=== PATIENT | female | born 1990 | race Caucasian/White ===

== ENCOUNTER 2019-05-11 14:44 | Emergency (ER) | payer OTHER, SELFPAY ==
[2019-05-11 15:04] VITALS: BP 134/81; PULSE 127; RESP 20; TEMP 37.6; O2SAT 97
--- NOTE | 2019-05-11 15:04 | ED.GENADULT ---
HPI - General Adult General Chief complaint: Upper Respiratory Infection Stated complaint: Cold/Flu Time Seen by Provider: 05/11/19 15:24 Source: patient Mode of arrival: ambulatory Limitations: no limitations History of Present Illness HPI narrative: 28-year-old female patient presents to the [facility] with complaints of cold symptoms for the past 2 days. Patient states she has had fevers, body aches, chills, runny nose, stuffy nose and a cough. Denies any chest pain or shortness of breath. Patient states she has been taking DayQuil and NyQuil for her symptoms. Patient denies getting a flu shot this year. Patient denies any breast-feeding or at this time. Related Data Home Medications Medication Instructions Recorded Confirmed sertraline 100 mg PO DAILY 05/11/19 05/11/19 Allergies Allergy/AdvReac Type Severity Reaction Status Date / Time ethinyl estradiol Allergy Unknown HIVES Verified 05/11/19 15:14 levonorgestrel-ethinyl Allergy Unknown HIVES Verified 05/11/19 15:14 estradiol WHEAT FLOUR Allergy Unknown Hives Uncoded 05/11/19 15:14 Review of Systems Review of Systems: Narrative: CONSTITUTIONAL: Positive subjective fever, body aches, chills, and sweats. EYES: Denies visual changes, redness, or discharge. ENT: Positive rhinorrhea, congestion, denies sore throat, or otalgia. CARDIOVASCULAR: Denies chest pain, palpitations, or edema. RESPIRATORY: Positive cough, denies dyspnea. GASTROINTESTINAL: Denies abdominal pain, nausea, vomiting, or diarrhea. GENITOURINARY: Denies dysuria or hematuria. SKIN: Denies rash or itching. MUSCULOSKELETAL: Denies back pain, joint pain, or myalgia. NEUROLOGIC: Denies headache, numbness, or weakness. PSYCHIATRIC: Denies anxiety or depression. PMFSH Comments At the time of my signature I agree with nursing past medical history, surgical, social, and family history. There is no relevant family history pertinent to the presenting complaint. Exam Narrative: Exam Narrative: GENERAL: Well-appearing, well-nourished, and in no acute distress. HEAD: Normocephalic, atraumatic. No tenderness noted to frontal maxillary sinuses on palpation. EYES: PERRLA and EOMI. ENT: Nares with erythema and edema noted bilaterally, no rhinorrhea or epistaxis. Mucous membranes moist. Posterior pharynx with no erythema, tonsillar margin, exudates or lesions present. Bilateral TMs are clear no erythema or foreign bodies in the canal. NECK: Supple. No lymphadenopathy CHEST: Clear to auscultation. No respiratory distress. HEART: Regular rate and rhythm. No murmur heard. Normal peripheral pulses. ABDOMEN: Soft, nontender, nondistended, normal active bowel sounds. EXTREMITIES: Normal range of motion. No edema. SKIN: Warm, dry, no rash. NEURO: No focal deficits. Alert and oriented x3. Course Vital Signs Vital signs: Vital Signs Temperature 37.6 C 05/11/19 15:04 Pulse Rate 127 H 05/11/19 15:04 Respiratory Rate 20 05/11/19 15:04 Blood Pressure 134/81 05/11/19 15:04 Pulse Oximetry 97 05/11/19 15:04 Temperature 37.6 C 05/11/19 15:04 Pulse Rate 127 H 05/11/19 15:04 Respiratory Rate 20 05/11/19 15:04 Blood Pressure 134/81 05/11/19 15:04 Pulse Oximetry 97 05/11/19 15:04 Vital signs reviewed. Medical Decision Making Differential Diagnosis Differential Diagnosis: Differential diagnosis: Allergic rhinitis, chronic sinusitis, tonsillitis, acute sinusitis, infectious mononucleosis, seasonal influenza, pertussis, diphtheria, meningococcal disease, viral syndrome, viral bronchitis, RSV. Notify patient that she is negative today for influenza. Discussed patient she can treat her symptoms symptomatically with [id number] Tylenol, Motrin, and can may continue doing her DayQuil and NyQuil as needed. Discussed with patient I will go ahead and give her some Tessalon Perlani to see if this helps with the cough however this is viral and will have to take its course and can last
== END 2019-05-11 15:40 | disposition home or self-care (01) ==
PROVIDERS: Emergency Provider Nurse Practitioner Family
DX: J06.9 Acute upper respiratory infection, unspecified (principal); F41.9 Anxiety disorder, unspecified
CPT/HCPCS: 87804; 99213; G0463

== ENCOUNTER 2019-09-29 15:36 | Emergency (ER) | payer OTHER, SELFPAY ==
[2019-09-29 15:40] VITALS: BP 134/107; PULSE 135; RESP 18; TEMP 36.9; O2SAT 96
--- NOTE | 2019-09-29 16:19 | ED.NAVMDI ---
HPI - Nausea/Vomiting/Diarrhea General Chief complaint: Abdominal Pain Stated complaint: Vomiting Source: patient and family () Mode of arrival: ambulatory Limitations: no limitations History of Present Illness HPI Narrative: 29 y.o. with a hx of+ recurrent episodes of vomiting and epigastric pain, onset about 2.5 years ago. She most recently abruptly started having nausea and vomiting 5 days ago, just after an argument with a friend. Since then she has vomited over 20x/day and had persistent upper abdominal pain. She has a hard time descriminating between and quantifying the nausea and pain. She has had several loose stools over the last five days. She at noodles last night and drank about 10 bottles of water. She has no headache or hx of migraines. Associated symptoms of a tender rash which forms on her neck and midsternal area every time she develops these symptoms. She has at least a 7 year hx of daily pot smoking. She had been smoking throughout the day until 3 months ago. She now smokes several times in the evening only. She has gone to [place] for E.D. care multiple times in the past for these episodes. There she has been advised to taper off of pot, received Zofran and IV fluids. These help but don't stop the pain. Related Data Home Medications Medication Instructions Recorded Confirmed sertraline 100 mg PO DAILY 05/11/19 09/29/19 Allergies Allergy/AdvReac Type Severity Reaction Status Date / Time ethinyl estradiol Allergy Unknown HIVES Verified 09/29/19 17:59 levonorgestrel-ethinyl Allergy Unknown HIVES Verified 09/29/19 17:59 estradiol WHEAT FLOUR Allergy Unknown Hives Uncoded 09/29/19 17:59 Review of Systems Constitutional: Constitutional: Reports fatigue and Denies fever(s) Comments: Very tired, has not slept for 2 days. ENT: Denies sore throat Cardiovascular: Cardiovascular: Denies chest pain Respiratory: Respiratory: Denies dyspnea Gastrointestinal: Gastrointestinal: Reports no additional gastrointestinal complaints Genitourinary: Genitourinary: Denies dysuria Comments: LMP 09/18/2019. Monthly menses Musculoskeletal: Musculoskeletal: Denies joint swelling Integumentary/Breasts: Skin/Breast: Reports rash Comments: See HPI Psychiatric: Psychiatric: Reports depression [facility] Past Medical History Medical History (Updated 09/29/19 @ 19:33 by Babar Prater MD) delivery delivered Marijuana abuse, continuous Recurrent abdominal pain Recurrent vomiting Surgical History Surgical History (Updated 09/29/19 @ 19:11 by Babar Prater MD) History of appendectomy History of cholecystectomy Exam Narrative: Exam Narrative: Appears to be uncomfortable/in pain Const: General: ill appearing Orientation/consciousness: patient oriented x3 HENMT: Mouth: Yes Normal oral and palatal mucosa present Eyes: EOM: EOMs intact bilaterally Neck: Neck: no lymphadenopathy Chest: Chest palpation & inspection: normal inspection of the chest Resp: Auscultation: clear to auscultation bilaterally Cardio: Rate: regular rate Rhythm: regular rhythm GI: GI Palp: Yes Soft to palpation, Yes Tenderness to palpation present (GI) (epigastrium ), No Rigid due to palpation and No Rebound tenderness present : General: Yes no CVA tenderness Skin: Other: pink maculo-papule rash primarily in vertical 2 cm lines on anterior neck, and diffusely scattered on sternal region. No petechia. Neuro: General: patient oriented x3 Extrem: General: normal to inspection and no edema Psych: Mental Status: mental status grossly normal Affect: normal affect Attitude: cooperative Course Course Emergency Course: Marked decrease in nausea and pain after Zofran, lorazepam 1 mg, promethazine 25 mg and morphine 4 mg. Offered admission for IVF, rest, dark room,quiet. Pt. wants to go home. Pt. d.c with plan to f/u with PCP in 2 days. Vital Signs Vital signs: Vital Signs Temperature 36.9 C
[2019-09-29 16:37] LABS: Basophils Absolute Auto 0.04 K/mm3 (0.00-0.10); Basophils Percent Auto 0.2 % (0.0-1.0); Eosinophils Absolute Auto 0.03 K/mm3 (0.02-0.50); Eosinophils Percent Auto 0.2 % (1.0-6.0); Hematocrit 39.4 % (35.0-49.0); Hemoglobin 12.8 g/dL (12.0-15.0); Immature Granulocyte Absolute 0.13 K/mm3 (0.00-0.00); Immature Granulocyte Percent A 0.8 % (0.0-0.0); Lymphocytes Absolute Auto 2.15 K/mm3 (1.10-4.50); Lymphocytes Percent Auto 13.3 % (18.0-42.0); Mean Corpuscular HGB Conc 32.5 g/dL (32.0-36.0); Mean Corpuscular Hemoglobin 26.2 pg (27.0-31.0); Mean Corpuscular Volume 80.7 fL (78.0-102.0); Mean Platelet Volume 9.7 fl (9.2-11.8); Monocytes Absolute Auto 0.76 K/mm3 (0.10-0.90); Monocytes Percent Auto 4.7 % (2.0-11.0); Neutrophils Percent Auto 80.8 % (50.0-70.0); Platelet Count Result 361 K/mm3 (150-420); Red Blood Count 4.88 M/mm3 (4.20-5.40); White Blood Count 16.1 K/mm3 (4.8-10.8)
[2019-09-29 16:39] LABS: Add Urine Microscopic? YES; Appearance Urine Clear (Clear); Bilirubin Urine Negative (Negative); Blood Urine Negative (Negative); Color Urine Yellow (Yellow); Glucose Urine UA Negative (Negative); Ketones Urine Negative (Negative); Leukocyte Esterase Ur Negative (Negative); Nitrate Urine Negative (Negative); Protein Urine 2+ (Negative); Urobilinogen Urine 0.2 mg/dL (0.2-1.0); pH Urine 6.5 (5.0-8.0)
[2019-09-29 16:42] LABS: Pregnancy On Board Control Positive; Urine Pregnancy Test Negative
[2019-09-29 16:43] LABS: Bacteria Urine 3+ /hpf; RBC Urine None seen /hpf (0-2); Squamous Epithelial Cell Urine Moderate /hpf (Few); WBC Urine None seen /hpf (0-3)
[2019-09-29 16:51] LABS: Alanine Aminotransferase 65 U/L (14-59); Albumin Level 4.5 g/dL (3.4-5.0); Alkaline Phosphatase 68 U/L (46-116); Anion Gap 11.6 mmol/L (7-16); Aspartate Amino Transferase 24 U/L (15-37); Bilirubin,Total 0.5 mg/dL (0.00-1.00); Blood Urea Nitrogen 29 mg/dL (7-18); Calcium 9.2 mg/dL (8.5-10.1); Carbon Dioxide 31 mmol/L (21-32); Chloride 96 mmol/L (98-108); Estimated Glomerular Filt Rate > 60; Glucose 151 mg/dL (70-99); Lipase 69 U/L (73-393); Osmolality Calculated 288 mOsm/kg (285-295); Potassium 3.6 mmol/L (3.5-5.1); Sodium 135 mmol/L (136-145); Total Protein 8.6 g/dL (6.4-8.2)
[2019-09-29] MEDS: KETOROLAC 30 MG/ML VIAL (*BKC) IV PUSH (17:02)
[2019-09-29] MEDS: ONDANSETRON INJ 4 MG/2 ML VIAL IV PUSH (17:02)
[2019-09-29] MEDS: LACTATED RINGERS 1,000 ML 999 ML IV CONT (17:03)
[2019-09-29] MEDS: PANTOPRAZOLE SODIUM IV 40 MG VIAL IV PUSH (17:03)
[2019-09-29] MEDS: MORPHINE SULFATE 4 MG/ML INJ IM (18:25)
[2019-09-29] MEDS: DEXTROSE 5%/0.9% SOD CHL 1,000 ML 999 ML IV CONT (18:25)
[2019-09-29] MEDS: PROMETHAZINE HCL 25 MG/ML AMPUL IM (18:54)
--- NOTE | 2019-09-29 19:25 | PC.NURSE ---
At 1830 Pt. verbalized to RN that she had previously been to the ED at [facility] and they were unable to figure out what was wrong with her. MD Prater printed her and her a large education packet on different causes of N/V/D of unknown source such as Hyperemesis r/t Marijuana Use or different food allergies like MSG allergy. and are reading education currently.
--- NOTE | 2019-09-29 19:39 | ED.ABDPAIN ---
HPI - Abdominal Pain General Chief Complaint: Abdominal Pain Stated Complaint: Vomiting Source: patient and family () Mode of arrival: ambulatory Limitations: no limitations History of Present Illness HPI narrative: . Related Data Home Medications Medication Instructions Recorded Confirmed sertraline 100 mg PO DAILY 05/11/19 09/29/19 Allergies Allergy/AdvReac Type Severity Reaction Status Date / Time ethinyl estradiol Allergy Unknown HIVES Verified 09/29/19 17:59 levonorgestrel-ethinyl Allergy Unknown HIVES Verified 09/29/19 17:59 estradiol WHEAT FLOUR Allergy Unknown Hives Uncoded 09/29/19 17:59 [facility] Past Medical History Medical History (Updated 09/29/19 @ 19:33 by Babar Prater MD) delivery delivered Marijuana abuse, continuous Recurrent abdominal pain Recurrent vomiting Surgical History Surgical History (Updated 09/29/19 @ 19:11 by Babar Prater MD) History of appendectomy History of cholecystectomy Course Vital Signs Vital signs: Vital Signs Temperature 36.9 C 09/29/19 15:40 Pulse Rate 135 H 09/29/19 15:40 Respiratory Rate 18 09/29/19 15:40 Blood Pressure 134/107 H 09/29/19 15:40 Pulse Oximetry 96 09/29/19 15:40 Temperature 36.9 C 09/29/19 15:40 Pulse Rate 135 H 09/29/19 15:40 Respiratory Rate 18 09/29/19 15:40 Blood Pressure 134/107 H 09/29/19 15:40 Pulse Oximetry 96 09/29/19 15:40 MDM - Abdominal Pain Lab Data Result diagrams: 09/29/19 16:30 09/29/19 16:30 Labs: Lab Results 09/29/19 09/29/19 09/29/19 Range/Units 16:14 16:14 16:30 WBC 16.1 H (4.8-10.8) K/mm3 RBC 4.88 (4.20-5.40) M/mm3 Hgb 12.8 (12.0-15.0) g/dL Hct 39.4 (35.0-49.0) % MCV 80.7 (78.0-102.0) fL MCH 26.2 L (27.0-31.0) pg MCHC 32.5 (32.0-36.0) g/dL RDW 13.0 (11.6-14.4) % Plt Count 361 (150-420) K/mm3 MPV 9.7 (9.2-11.8) fl Immature Gran % (Auto) 0.8 H (0.0-0.0) % Neut % (Auto) 80.8 H (50.0-70.0) % Lymph % (Auto) 13.3 L (18.0-42.0) % [place] % (Auto) 4.7 (2.0-11.0) % Eos % (Auto) 0.2 L (1.0-6.0) % Baso % (Auto) 0.2 (0.0-1.0) % Lymph # (Auto) 2.15 (1.10-4.50) K/mm3 [place] # (Auto) 0.76 (0.10-0.90) K/mm3 Eos # (Auto) 0.03 (0.02-0.50) K/mm3 Baso # (Auto) 0.04 (0.00-0.10) K/mm3 Abs Immat Gran (auto) 0.13 H (0.00-0.00) K/mm3 Absolute Neuts (auto) 13.0 H (1.7-7.2) K/mm3 Absolute Nucleated RBC 0.00 (0.00-0.00) K/mm3 Nucleated RBC % 0.0 (0-0.0) % Sodium (136-145) mmol/L Potassium (3.5-5.1) mmol/L Chloride (98-108) mmol/L Carbon Dioxide (21-32) mmol/L Anion Gap (7-16) mmol/L BUN (7-18) mg/dL Creatinine (0.55-1.02) mg/dL Estim Creat Clear Calc Estimated GFR (59 - ) Glucose (70-99) mg/dL Calculated Osmolality (285-295) mOsm/kg Calcium (8.5-10.1) mg/dL Total Bilirubin (0.00-1.00) mg/dL AST (15-37) U/L ALT (14-59) U/L Alkaline Phosphatase (46-116) U/L Total Protein (6.4-8.2) g/dL Albumin (3.4-5.0) g/dL Lipase (73-393) U/L Urine Color Yellow (Yellow) Urine Appearance Clear (Clear) Urine pH 6.5 (5.0-8.0) Ur Specific [place] 1.020 1.020 (1.010-1.020) Urine Protein 2+ H (Negative) Urine Glucose (UA) Negative (Negative) Urine Ketones Negative (Negative) Ur Blood (Man) Negative (Negative) Urine Nitrate Negative (Negative) Urine Bilirubin Negative (Negative) Urine Urobilinogen 0.2 (0.2-1.0) mg/dL Ur Leukocyte Esterase Negative (Negative) Urine RBC None seen (0-2) /hpf Urine WBC None seen (0-3) /hpf Ur Squamous Epith Cells Moderate H (Few) /hpf Urine Bacteria 3+ H (None) /hpf Urine Test Negative 09/29/19 Range/Units 16:30 WBC (4.8-10.8) K/mm3 RBC (4.20-5.40) M/mm3 Hgb (12.0-15.0) g/dL Hct (35.0-49.0) % MCV
[2019-09-29 19:49] VITALS: BP 111/39; RESP 161; O2SAT 96
== END 2019-09-29 19:50 | disposition home or self-care (01) ==
PROVIDERS: Emergency Provider Family Medicine
DX: R11.10 Vomiting, unspecified (principal); R10.9 Unspecified abdominal pain; F12.10 Cannabis abuse, uncomplicated
CPT/HCPCS: 36415; 80053; 81001; 81025; 83690; 85025; 96361; 96372; 96374; 96375; 99283; 99284; C9113; J1885; J2060; J2270; J2405; J2550; J7042; J7120

== ENCOUNTER 2020-06-13 13:13 | Emergency (ER) | payer OTHER, SELFPAY ==
[2020-06-13 13:29] VITALS: BP 144/95; PULSE 122; RESP 20; TEMP 37.4; O2SAT 97
[2020-06-13 14:21] LABS: Basophils Absolute Auto 0.02 K/mm3 (0.00-0.10); Basophils Percent Auto 0.2 % (0.0-1.0); Hematocrit 37.4 % (35.0-49.0); Hemoglobin 12.5 g/dL (12.0-15.0); Immature Granulocyte Absolute 0.08 K/mm3 (0.00-0.00); Immature Granulocyte Percent A 0.6 % (0.0-0.0); Lymphocytes Absolute Auto 1.91 K/mm3 (1.10-4.50); Lymphocytes Percent Auto 15.3 % (18.0-42.0); Mean Corpuscular HGB Conc 33.4 g/dL (32.0-36.0); Mean Corpuscular Hemoglobin 26.2 pg (27.0-31.0); Mean Corpuscular Volume 78.2 fL (78.0-102.0); Mean Platelet Volume 9.7 fl (9.2-11.8); Monocytes Absolute Auto 0.79 K/mm3 (0.10-0.90); Monocytes Percent Auto 6.3 % (2.0-11.0); Neutrophils Absolute Auto 9.7 K/mm3 (1.7-7.2); Neutrophils Percent Auto 77.6 % (50.0-70.0); Platelet Count Result 369 K/mm3 (150-420); Red Blood Count 4.78 M/mm3 (4.20-5.40); Red Cell Distribution Width 13.8 % (11.6-14.4); White Blood Count 12.5 K/mm3 (4.8-10.8)
[2020-06-13 14:22] LABS: Add Urine Microscopic? YES; Appearance Urine Clear (Clear); Bilirubin Urine Negative (Negative); Blood Urine Negative (Negative); Color Urine Yellow (Yellow); Glucose Urine UA Negative (Negative); Ketones Urine 1+ (Negative); Leukocyte Esterase Ur Negative LEU/UL (Negative); Nitrate Urine Negative (Negative); Protein Urine 2+ (Negative); Specific Grav Ur >= 1.030 (1.010-1.020); Urobilinogen Urine 0.2 mg/dL (0.2-1.0)
[2020-06-13] MEDS: ONDANSETRON INJ 4 MG/2 ML VIAL IV PUSH (14:25)
[2020-06-13 14:27] LABS: Pregnancy On Board Control Positive; Urine Pregnancy Test Negative
[2020-06-13 14:27] LABS: Bacteria Urine 1+ /hpf; Mucus Urine Few /lpf; RBC Urine None seen /hpf (0-2); Squamous Epithelial Cell Urine Few /hpf (Few); WBC Urine None seen /hpf (0-3)
[2020-06-13 14:36] LABS: Alanine Aminotransferase 24 U/L (14-59); Albumin Level 4.5 g/dL (3.4-5.0); Alkaline Phosphatase 68 U/L (46-116); Anion Gap 12 mmol/L (8-16); Aspartate Amino Transferase 11 U/L (15-37); Bilirubin,Total 0.5 mg/dL (0.00-1.00); Blood Urea Nitrogen 27 mg/dL (7-18); Carbon Dioxide 27 mmol/L (21-32); Chloride 102 mmol/L (98-108); Estimated CRCL calculation 91 ml/min; Estimated Glomerular Filt Rate > 60; Glucose 129 mg/dL (70-99); Lipase 38 U/L (73-393); Osmolality Calculated 299 mOsm/kg (285-295); Potassium 3.6 mmol/L (3.5-5.1); Sodium 141 mmol/L (136-145); Total Protein 8.7 g/dL (6.4-8.2)
[2020-06-13] MEDS: SODIUM CHLORIDE 0.9% IV 2,000 ML 999 ML IV CONT (14:39)
--- NOTE | 2020-06-13 15:50 | ED.NAVMDI ---
HPI - Nausea/Vomiting/Diarrhea General Chief complaint: Nausea/Vomiting/Diarrhea Stated complaint: acute hyper emisis Source: patient Mode of arrival: ambulatory Limitations: no limitations History of Present Illness HPI Narrative: Pt is a MJ user and had episodes of hyperemesis on multiple occasions. She started this episode 1 day ago. She is feeling nauseated, and cant keep anything down. MD elicited complaint: nausea Pertinent past history: cyclical vomiting Onset (ago): day(s) Description of vomiting: other (over 10 times in last 24 hours) Associated nausea: No Location of pain: none Pain consistency: constant Severity: mild Quality: cramping Exacerbating factors: eating Relieving factors: none Associated symptoms: loss of appetite and nausea/vomiting Related Data Allergies Allergy/AdvReac Type Severity Reaction Status Date / Time ethinyl estradiol Allergy Unknown HIVES Verified 06/13/20 13:46 levonorgestrel-ethinyl Allergy Unknown HIVES Verified 06/13/20 13:46 estradiol WHEAT FLOUR Allergy Unknown Hives Uncoded 06/13/20 13:46 Review of Systems Constitutional: Constitutional: Denies chills, Reports fatigue, Denies fever(s) and Reports weakness Eyes: Eyes: Reports no additional eye complaints ENT: Reports system reviewed and no additional complaints, except as documented Cardiovascular: Cardiovascular: Reports no additional cardiovascular complaints Respiratory: Respiratory: Reports no additional respiratory complaints Gastrointestinal: Gastrointestinal: Reports no additional gastrointestinal complaints Musculoskeletal: Musculoskeletal: Reports no additional musculoskeletal complaints Neurologic: Reports system reviewed and no additional complaints, except as documented Psychiatric: Psychiatric: Reports no additional psychiatric complaints Endocrine: Endocrine: Reports no additional endocrine complaints Hematologic/Lymphatic: Hematologic/Lymphatic: Reports no additional hematologic/lymphatic complaints Allergic/Immunologic: Allergic/Immunologic: Reports no additional allergic/immunologic complaints [facility] Past Medical History Medical History delivery delivered Marijuana abuse, continuous Recurrent abdominal pain Recurrent vomiting Surgical History Surgical History History of appendectomy History of cholecystectomy Social History Social History Gender identity (if verbalized by the patient): Female Exam Const: General: no acute distress and alert Orientation/consciousness: patient oriented x3 HENMT: Head: normal to inspection Eyes: Cornea: corneas normal Pupils: Equal, round and reactive pupils present Neck: Neck: normal visual inspection Chest: Chest palpation & inspection: normal inspection of the chest Resp: Effort & Inspection: normal respiratory effort Auscultation: clear to auscultation bilaterally Cardio: Rate: regular rate Rhythm: regular rhythm GI: GI Palp: Yes Soft to palpation, No Tenderness to palpation present (GI) and No Guarding due to palpation present (GI) : General: Yes no CVA tenderness Back/Spine/Pelvis: Back: no CVA tenderness Skin: General skin exam: normal color Rashes: no rashes Neuro: General: patient oriented x3, moves all extremities, no meningeal signs, no focal motor deficits and CN's II-XI intact bilaterally Extrem: General: normal to inspection Psych: Appearance: grossly normal Mental Status: mental status grossly normal Thought content: Yes Normal thought content present Course Vital Signs Vital signs: Vital Signs Temperature 37.4 C 06/13/20 13:29 Pulse Rate 122 H 06/13/20 13:29 Respiratory Rate 20 06/13/20 13:29 Blood Pressure 144/95 H 06/13/20 13:29 Pulse Oximetry 97 06/13/20 13:29 Temperature 37.4 C 06/13/20 13:29 Pul
[2020-06-13 16:08] VITALS: RESP 16
== END 2020-06-13 16:08 | disposition home or self-care (01) ==
PROVIDERS: Emergency Provider Emergency Medicine
DX: R11.10 Vomiting, unspecified (principal); F12.90 Cannabis use, unspecified, uncomplicated
CPT/HCPCS: 36415; 80053; 81001; 81025; 83690; 85025; 96361; 96374; 99283; 99284; J2405; J7030

== ENCOUNTER 2020-06-15 23:00 | Emergency (ER) | payer OTHER, SELFPAY ==
[2020-06-15 23:21] VITALS: BP 119/95; PULSE 125; RESP 20; TEMP 36.7; O2SAT 98
[2020-06-15 23:42] LABS: Basophils Absolute Auto 0.03 K/mm3 (0.00-0.10); Basophils Percent Auto 0.3 % (0.0-1.0); Eosinophils Absolute Auto 0.01 K/mm3 (0.02-0.50); Eosinophils Percent Auto 0.1 % (1.0-6.0); Hematocrit 36.5 % (35.0-49.0); Immature Granulocyte Percent A 0.9 % (0.0-0.0); Lymphocytes Absolute Auto 2.43 K/mm3 (1.10-4.50); Lymphocytes Percent Auto 21.6 % (18.0-42.0); Mean Corpuscular HGB Conc 32.9 g/dL (32.0-36.0); Mean Corpuscular Hemoglobin 25.8 pg (27.0-31.0); Mean Corpuscular Volume 78.5 fL (78.0-102.0); Mean Platelet Volume 10.1 fl (9.2-11.8); Monocytes Absolute Auto 0.89 K/mm3 (0.10-0.90); Monocytes Percent Auto 7.9 % (2.0-11.0); Neutrophils Absolute Auto 7.8 K/mm3 (1.7-7.2); Neutrophils Percent Auto 69.2 % (50.0-70.0); Platelet Count Result 357 K/mm3 (150-420); Red Blood Count 4.65 M/mm3 (4.20-5.40); Red Cell Distribution Width 13.6 % (11.6-14.4); White Blood Count 11.3 K/mm3 (4.8-10.8)
[2020-06-15 23:43] LABS: Add Urine Microscopic? YES; Appearance Urine Clear (Clear); Bilirubin Urine Negative (Negative); Blood Urine Negative (Negative); Color Urine Yellow (Yellow); Glucose Urine UA Negative (Negative); Ketones Urine 1+ (Negative); Leukocyte Esterase Ur Negative (Negative); Nitrate Urine Negative (Negative); Protein Urine 1+ (Negative); Urobilinogen Urine 0.2 mg/dL (0.2-1.0)
[2020-06-15 23:50] LABS: Squamous Epithelial Cell Urine Few /hpf (Few)
[2020-06-15 23:55] LABS: Alanine Aminotransferase 64 U/L (14-59); Albumin Level 4.2 g/dL (3.4-5.0); Alkaline Phosphatase 61 U/L (46-116); Anion Gap 7 mmol/L (8-16); Aspartate Amino Transferase 42 U/L (15-37); Bilirubin,Total 0.8 mg/dL (0.00-1.00); Blood Urea Nitrogen 21 mg/dL (7-18); Calcium 8.6 mg/dL (8.5-10.1); Carbon Dioxide 31 mmol/L (21-32); Chloride 97 mmol/L (98-108); Estimated CRCL calculation 94 ml/min; Estimated Glomerular Filt Rate > 60; Glucose 126 mg/dL (70-99); Osmolality Calculated 285 mOsm/kg (285-295); Sodium 135 mmol/L (136-145); Total Protein 8.1 g/dL (6.4-8.2)
[2020-06-15] MEDS: ONDANSETRON INJ 4 MG/2 ML VIAL IV PUSH (23:55)
[2020-06-15] MEDS: SODIUM CHLORIDE 0.9% IV 1,000 ML 999 ML IV CONT (23:55)
--- NOTE | 2020-06-15 23:59 | ED.NAVMDI ---
HPI - Nausea/Vomiting/Diarrhea General Chief complaint: Nausea/Vomiting/Diarrhea Stated complaint: throwing up Source: patient and family Mode of arrival: ambulatory History of Present Illness HPI Narrative: Patient presents with nausea vomiting with some some epigastric discomfort with no fever chills no diarrhea no suprapubic tenderness no dysuria no hematuria has been going on for over a week now does some use cannabis and has been here this past Friday for a similar reasons and had a workup at that time. Currently was taking Zofran and was not helping her nausea vomiting. MD elicited complaint: nausea and vomiting Related Data Allergies Allergy/AdvReac Type Severity Reaction Status Date / Time ethinyl estradiol Allergy Unknown HIVES Verified 06/13/20 13:46 levonorgestrel-ethinyl Allergy Unknown HIVES Verified 06/13/20 13:46 estradiol WHEAT FLOUR Allergy Unknown Hives Uncoded 06/13/20 13:46 Review of Systems Review of Systems: All systems reviewed & are unremarkable except as noted in HPI and below PMFSH Past Medical History Medical History delivery delivered Marijuana abuse, continuous Recurrent abdominal pain Recurrent vomiting Surgical History Surgical History History of appendectomy History of cholecystectomy Social History Social History Gender identity (if verbalized by the patient): Female Exam Const: General: no acute distress Orientation/consciousness: patient oriented x3 HENMT: Head: normal to inspection Eyes: Pupils: Equal, round and reactive pupils present EOM: EOMs intact bilaterally Chest: Chest palpation & inspection: normal inspection of the chest Resp: Effort & Inspection: normal respiratory effort Cardio: Rate: regular rate Rhythm: regular rhythm GI: GI Palp: Yes Soft to palpation : General: Yes no CVA tenderness Skin: General skin exam: normal color Rashes: no rashes Psych: Appearance: grossly normal Mental Status: mental status grossly normal Affect: normal affect Course Course Emergency Course: Patient improved after IV Zofran and IV fluids patient's potassium level was some a little bit low and will give her a 40mEq supplement of potassium chloride prior to discharge and advised to discontinue her cannabis use and follow-up with her primary care doctor. Vital Signs Vital signs: Vital Signs Temperature 36.7 C 06/15/20 23:21 Pulse Rate 125 H 06/15/20 23:21 Respiratory Rate 20 06/15/20 23:21 Blood Pressure 119/95 H 06/15/20 23:21 Pulse Oximetry 98 06/15/20 23:21 Temperature 36.7 C 06/15/20 23:21 Pulse Rate 125 H 06/15/20 23:21 Respiratory Rate 20 06/15/20 23:21 Blood Pressure 119/95 H 06/15/20 23:21 Pulse Oximetry 98 06/15/20 23:21 MDM - Nausea/Vomiting/Diarrhea Lab Data Result diagrams: 06/15/20 23:36 06/15/20 23:36 Labs: Lab Results 06/15/20 06/15/20 06/15/20 Range/Units 23:36 23:36 23:36 WBC 11.3 H (4.8-10.8) K/mm3 RBC 4.65 (4.20-5.40) M/mm3 Hgb 12.0 (12.0-15.0) g/dL Hct 36.5 (35.0-49.0) % MCV 78.5 (78.0-102.0) fL MCH 25.8 L (27.0-31.0) pg MCHC 32.9 (32.0-36.0) g/dL RDW 13.6 (11.6-14.4) % Plt Count 357 (150-420) K/mm3 MPV 10.1 (9.2-11.8) fl Immature Gran % (Auto) 0.9 H (0.0-0.0) % Neut % (Auto) 69.2 (50.0-70.0) % Lymph % (Auto) 21.6 (18.0-42.0) % [place] % (Auto) 7.9 (2.0-11.0) % Eos % (Auto) 0.1 L (1.0-6.0) % Baso % (Auto) 0.3 (0.0-1.0) % Lymph # (Auto) 2.43 (1.10-4.50) K/mm3 [place] # (Auto) 0.89 (0.10-0.90) K/mm3 Eos # (Auto) 0.01 L (0.02-0.50) K/mm3 Baso # (Auto) 0.03 (0.00-0.10) K/mm3 Abs Immat Gran (auto) 0.10 H (0.00-0.00) K/mm3 Absolute Neuts (auto) 7.8 H (1.7-7.2) K/mm3 Absolute Nucleated
[2020-06-16] MEDS: POTASSIUM CHLORIDE 20 MEQ TABLET 40 MEQ PO (00:07)
[2020-06-16] MEDS: METOCLOPRAMIDE HCL INJ 10 MG/2 ML VIAL IV PUSH (00:19)
[2020-06-16 00:55] VITALS: BP 143/98; PULSE 98; RESP 20; O2SAT 99
== END 2020-06-16 01:00 | disposition home or self-care (01) ==
PROVIDERS: Emergency Provider Emergency Medicine
DX: R11.10 Vomiting, unspecified (principal); F12.10 Cannabis abuse, uncomplicated; E87.6 Hypokalemia
CPT/HCPCS: 36415; 80053; 81001; 85025; 96361; 96374; 99283; 99284; A9270; J2405; J2765; J7030

== ENCOUNTER 2020-11-18 14:04 | Emergency (ER) | payer OTHER, SELFPAY ==
[2020-11-18 14:15] VITALS: BP 105/75; PULSE 113; RESP 20; TEMP 37.3; O2SAT 96
[2020-11-18] MEDS: SODIUM CHLORIDE 0.9% IV 1,000 ML 999 ML IV CONT (14:33)
--- NOTE | 2020-11-18 14:43 | ED.GENADULT ---
HPI - General Adult General Chief complaint: Nausea/Vomiting/Diarrhea Stated complaint: nausea, vomitting since 11/16 Source: patient Mode of arrival: ambulatory History of Present Illness HPI narrative: This is a 30-year-old female with history of cannabinoid hyperemesis syndrome currently well controlled with no nausea or vomiting but was having drinking episode and feels like she is dehydrated and feels that she needs IV fluid hydration currently no nausea vomiting no fever chills no abdominal pain no shortness of breath no chest pain no diarrhea constipation. Onset (ago): day(s) Relieving factors: none Exacerbating factors: none Related Data Home Medications Medication Instructions Recorded Confirmed No Home Medications 11/18/20 11/18/20 Allergies Allergy/AdvReac Type Severity Reaction Status Date / Time ethinyl estradiol Allergy Unknown HIVES Verified 06/13/20 13:46 levonorgestrel-ethinyl Allergy Unknown HIVES Verified 06/13/20 13:46 estradiol wheat Allergy Unknown Verified 11/18/20 14:34 Review of Systems Review of Systems: All systems reviewed & are unremarkable except as noted in HPI and below PMFSH Past Medical History Medical History delivery delivered Marijuana abuse, continuous Recurrent abdominal pain Recurrent vomiting Surgical History Surgical History History of appendectomy History of cholecystectomy Social History Social History Gender identity (if verbalized by the patient): Female Exam Const: General: no acute distress Orientation/consciousness: patient oriented x3 HENMT: Head: normal to inspection Eyes: Conjunctivae: conjunctivae normal Pupils: Equal, round and reactive pupils present Chest: Chest palpation & inspection: normal inspection of the chest Resp: Effort & Inspection: normal respiratory effort Auscultation: clear to auscultation bilaterally Cardio: Rate: regular rate Rhythm: regular rhythm Urinary Catheter: Urinary Catheter: patent and draining Neuro: General: patient oriented x3 Extrem: General: normal to inspection and no pedal edema Psych: Mental Status: mental status grossly normal Affect: normal affect Course Course Emergency Course: Patient appears comfortable started IV fluids and reviewed CMP with patient. Medical Decision Making Lab Data Result diagrams: 11/18/20 14:32 Labs: Lab Results 11/18/20 Range/Units 14:32 Sodium Pending Potassium Pending Chloride Pending Carbon Dioxide Pending Anion Gap Pending BUN Pending Creatinine Pending Estim Creat Clear Calc Pending Estimated GFR Pending Glucose Pending Calculated Osmolality Pending Calcium Pending Total Bilirubin Pending AST Pending ALT Pending Alkaline Phosphatase Pending Total Protein Pending Albumin Pending Critical Care Time Critical Care Time Critical Care Time: No Discharge Plan Discharge Clinical Impression: Dehydration Patient Disposition: Home, Self-Care Condition: Stable Instructions: Antibiotic Form, Dehydration (ED) Additional Instructions: Advised to continue drinking plenty of fluids can use Gatorade, take medicine at is given by her primary care doctor and if symptoms persist or worsen should follow up with primary care physician. Prescriptions: No Action No Home Medications RF: 0 Follow-up/Referrals: UNKNOWN,DOCTOR [Primary Care Provider] -
[2020-11-18 14:52] LABS: Alanine Aminotransferase 55 U/L (14-59); Albumin Level 4.3 g/dL (3.4-5.0); Alkaline Phosphatase 69 U/L (46-116); Anion Gap 10 mmol/L (8-16); Aspartate Amino Transferase 19 U/L (15-37); Bilirubin,Total 0.7 mg/dL (0.00-1.00); Blood Urea Nitrogen 26 mg/dL (7-18); Calcium 8.5 mg/dL (8.5-10.1); Carbon Dioxide 31 mmol/L (21-32); Chloride 98 mmol/L (98-108); Estimated Glomerular Filt Rate > 60; Glucose 142 mg/dL (70-99); Osmolality Calculated 294 mOsm/kg (285-295); Potassium 3.2 mmol/L (3.5-5.1); Sodium 139 mmol/L (136-145); Total Protein 8.3 g/dL (6.4-8.2)
[2020-11-18] MEDS: POTASSIUM CHLORIDE 20 MEQ TABLET PO (15:01)
[2020-11-18 15:10] VITALS: RESP 17
== END 2020-11-18 15:10 | disposition home or self-care (01) ==
PROVIDERS: Emergency Provider Emergency Medicine
DX: E86.0 Dehydration (principal)
CPT/HCPCS: 36415; 80053; 99282; 99283; A9270; J7030

== ENCOUNTER 2021-01-13 16:09 | Emergency (ER) | payer OTHER, SELFPAY ==
--- NOTE | ~2021-01-13 | CT_ITS ---
EXAMINATION: CT abdomen pelvis wo con DATE: 01/13/2021 17:53 INDICATION: Bilateral abdomen pain. Vomiting. TECHNIQUE: Computed tomography (CT) of the abdomen and pelvis was performed without intravenous contr ast. The dose-length product was 1046.85 mGy-cm. Automated exposure control and iterative reconstruct ion technique were employed. COMPARISON: CT dated 07/14/2018. FINDINGS: Lung bases are unremarkable. Heart size is normal. No significant vascular abnormality. The liver, spleen, pancreas, adrenal glands and kidneys are unremarkable. Status post cholecystectomy. N onobstructive bowel gas pattern. No free air or free fluid. No abnormal pelvic masses or fluid collec tions. IMPRESSION: 1. No acute abdominal abnormality. Reviewed, dictated and finalized at location A.
[2021-01-13 16:20] VITALS: BP 154/100; PULSE 112; RESP 20; TEMP 37.2; O2SAT 98
[2021-01-13] MEDS: SODIUM CHLORIDE 0.9% IV 1,000 ML 999 ML IV CONT (16:45)
[2021-01-13] MEDS: ONDANSETRON INJ 4 MG/2 ML VIAL IV PUSH (16:45)
[2021-01-13 16:50] LABS: Basophils Absolute Auto 0.03 K/mm3 (0.00-0.10); Basophils Percent Auto 0.2 % (0.0-1.0); Hematocrit 40.7 % (35.0-49.0); Hemoglobin 13.5 g/dL (12.0-15.0); Immature Granulocyte Absolute 0.07 K/mm3 (0.00-0.00); Immature Granulocyte Percent A 0.6 % (0.0-0.0); Lymphocytes Absolute Auto 2.23 K/mm3 (1.10-4.50); Lymphocytes Percent Auto 18.3 % (18.0-42.0); Mean Corpuscular HGB Conc 33.2 g/dL (32.0-36.0); Mean Corpuscular Hemoglobin 26.3 pg (27.0-31.0); Mean Corpuscular Volume 79.3 fL (78.0-102.0); Mean Platelet Volume 9.6 fl (9.2-11.8); Monocytes Absolute Auto 0.76 K/mm3 (0.10-0.90); Monocytes Percent Auto 6.2 % (2.0-11.0); Neutrophils Absolute Auto 9.1 K/mm3 (1.7-7.2); Neutrophils Percent Auto 74.7 % (50.0-70.0); Platelet Count Result 408 K/mm3 (150-420); Red Blood Count 5.13 M/mm3 (4.20-5.40); Red Cell Distribution Width 13.3 % (11.6-14.4); White Blood Count 12.2 K/mm3 (4.8-10.8)
[2021-01-13 17:05] LABS: Alanine Aminotransferase 35 U/L (14-59); Albumin Level 4.8 g/dL (3.4-5.0); Alkaline Phosphatase 77 U/L (46-116); Anion Gap 15 mmol/L (8-16); Aspartate Amino Transferase 15 U/L (15-37); Bilirubin,Total 0.7 mg/dL (0.00-1.00); Blood Urea Nitrogen 24 mg/dL (7-18); Carbon Dioxide 26 mmol/L (21-32); Chloride 102 mmol/L (98-108); Estimated Glomerular Filt Rate > 60; Glucose 162 mg/dL (70-99); Lipase 54 U/L (73-393); Osmolality Calculated 304 mOsm/kg (285-295); Potassium 3.1 mmol/L (3.5-5.1); Sodium 143 mmol/L (136-145)
--- NOTE | 2021-01-13 17:30 | PC.NURSE ---
pt amb to bathroom steadily to void. urine specimen obtained. iv infusing well without sx of infiltration
[2021-01-13 17:35] LABS: Appearance Urine Clear (Clear); Bilirubin Urine 1+ (Negative); Blood Urine Negative (Negative); Glucose Urine UA Negative (Negative); Ketones Urine 1+ (Negative); Leukocyte Esterase Ur 2+ (Negative); Nitrate Urine Negative (Negative); Protein Urine 2+ (Negative); Specific Grav Ur >= 1.030 (1.010-1.020); Urobilinogen Urine 0.2 mg/dL (0.2-1.0)
[2021-01-13 17:36] LABS: Add Urine Microscopic? YES; Color Urine Dark Orange (Yellow)
[2021-01-13 17:37] LABS: Bacteria Urine 1+ /hpf; RBC Urine 0-2 /hpf (0-2); Squamous Epithelial Cell Urine Few /hpf (Few); WBC Urine 16-20 /hpf (0-3)
[2021-01-13 17:38] LABS: Pregnancy On Board Control Positive; Urine Pregnancy Test Negative
[2021-01-13 17:41] LABS: Amphetamine Screen Urine Negative (Negative); Barbiturate Screen Urine Negative (Negative); Benzodiazepines Screen Urine Positive (Negative); Cannabinoid Screen Urine Positive (Negative); Cocaine Screen Urine Positive (Negative); Methadone Screen Urine Negative (Negative); Opiate Screen Urine Negative (Negative); Phencyclidine Screen Urine Negative (Negative)
--- NOTE | 2021-01-13 18:22 | ED.NAVMDI ---
HPI - Nausea/Vomiting/Diarrhea General Chief complaint: Nausea/Vomiting/Diarrhea Stated complaint: vomitting History of Present Illness HPI Narrative: this is a 30-year-old female that presents with some left upper quadrant abdominal pain suprapubic tenderness she denies having any dysuria hesitancy or suprapubic pain or discomfort currently no flank pain no fever or chills no shortness of breath does have nausea vomiting over the last 24hours with no chest pain. MD elicited complaint: nausea, vomiting and abdominal pain Related Data Allergies Allergy/AdvReac Type Severity Reaction Status Date / Time ethinyl estradiol Allergy Unknown HIVES Verified 01/13/21 16:34 levonorgestrel-ethinyl Allergy Unknown HIVES Verified 01/13/21 16:34 estradiol wheat Allergy Unknown Verified 01/13/21 16:34 Review of Systems Review of Systems: All systems reviewed & are unremarkable except as noted in HPI and below PMFSH Past Medical History Medical History delivery delivered Marijuana abuse, continuous Recurrent abdominal pain Recurrent vomiting Surgical History Surgical History History of appendectomy History of cholecystectomy Social History Social History Gender identity (if verbalized by the patient): Female Exam Const: General: no acute distress Orientation/consciousness: patient oriented x3 HENMT: Head: normal to inspection Eyes: Pupils: Equal, round and reactive pupils present EOM: EOMs intact bilaterally Neck: Neck: no lymphadenopathy and no meningeal signs Chest: Chest palpation & inspection: normal inspection of the chest Resp: Effort & Inspection: normal respiratory effort Auscultation: clear to auscultation bilaterally Cardio: Rate: regular rate Rhythm: regular rhythm GI: GI Palp: Yes Soft to palpation and Yes Tenderness to palpation present (GI) Urinary Catheter: Urinary Catheter: patent and draining Back/Spine/Pelvis: Back: no CVA tenderness Skin: General skin exam: normal color Rashes: no rashes Neuro: General: patient oriented x3 and moves all extremities Extrem: General: normal to inspection and no pedal edema Psych: Mental Status: mental status grossly normal Course Course Emergency Course: Labs and CT scan reviewed with patient patient told that she has a urinary tract infection will give her a g of ceftriaxone, and her potassium is on the lower side will give her a dose of p.o. potassium. Vital Signs Vital signs: Vital Signs Temperature 37.2 C 01/13/21 16:20 Pulse Rate 112 H 01/13/21 16:20 Respiratory Rate 20 01/13/21 16:20 Blood Pressure 154/100 H 01/13/21 16:20 Pulse Oximetry 98 01/13/21 16:20 Temperature 37.2 C 01/13/21 16:20 Pulse Rate 112 H 01/13/21 16:20 Respiratory Rate 20 01/13/21 16:20 Blood Pressure 154/100 H 01/13/21 16:20 Pulse Oximetry 98 01/13/21 16:20 MDM - Nausea/Vomiting/Diarrhea Lab Data Result diagrams: 01/13/21 16:44 01/13/21 16:44 Labs: Lab Results 01/13/21 01/13/21 01/13/21 Range/Units 16:44 16:44 17:20 WBC 12.2 H (4.8-10.8) K/mm3 RBC 5.13 (4.20-5.40) M/mm3 Hgb 13.5 (12.0-15.0) g/dL Hct 40.7 (35.0-49.0) % MCV 79.3 (78.0-102.0) fL MCH 26.3 L (27.0-31.0) pg MCHC 33.2 (32.0-36.0) g/dL RDW 13.3 (11.6-14.4) % Plt Count 408 (150-420) K/mm3 MPV 9.6 (9.2-11.8) fl Immature Gran % (Auto) 0.6 H (0.0-0.0) % Neut % (Auto) 74.7 H (50.0-70.0) % Lymph % (Auto) 18.3 (18.0-42.0) % [place] % (Auto) 6.2 (2.0-11.0) % Eos % (Auto) 0.0 L (1.0-6.0) % Baso % (Auto) 0.2 (0.0-1.0) % Lymph # (Auto) 2.23 (1.10-4.50) K/mm3 [place] # (Auto) 0.76 (0.10-0.90) K/mm3 Eos # (Auto) 0.00 L (0.02-0.50) K/mm3 Baso # (Auto) 0.03 (0.00-0.10) K/mm3 Abs
[2021-01-13] MEDS: POTASSIUM CHLORIDE 20 MEQ TABLET 40 MEQ PO (18:30)
[2021-01-13 19:01] VITALS: BP 113/71; PULSE 121; RESP 20; TEMP 37.4; O2SAT 99
== END 2021-01-13 19:04 | disposition home or self-care (01) ==
PROVIDERS: Emergency Provider Emergency Medicine
DX: E86.0 Dehydration (principal); E87.6 Hypokalemia; N30.00 Acute cystitis without hematuria; R11.2 Nausea with vomiting, unspecified
CPT/HCPCS: 36415; 74176; 80053; 80307; 81001; 81025; 83690; 85025; 96361; 96365; 96375; 99283; 99284; A9270; J0696; J2405; J7030

== ENCOUNTER 2021-01-17 17:44 | Emergency (ER) | payer OTHER, SELFPAY ==
[2021-01-17 18:09] VITALS: BP 169/123; PULSE 86; RESP 18; TEMP 36.6; O2SAT 97
--- NOTE | 2021-01-17 18:11 | ED.NAVMDI ---
HPI - Nausea/Vomiting/Diarrhea General Chief complaint: Nausea/Vomiting/Diarrhea Stated complaint: throwing up Time Seen by Provider: 01/17/21 18:11 Source: patient Mode of arrival: wheelchair Limitations: no limitations History of Present Illness HPI Narrative: 30-year-old woman with a history of recurrent vomiting and abdominal pain comes in today complaining of abdominal pain, vomiting and up until 2 days ago diarrhea. She was seen here on January 13 for similar symptoms and she was diagnosed with the UTI. Symptoms did not improve with antibiotics or with ondansetron. She denies blood in her stools, blood in her vomitus, fever, chest pain, shortness of breath, cold symptoms, or sick exposures. She states she continues to use marijuana. MD elicited complaint: nausea, vomiting, diarrhea and abdominal pain Pertinent past history: other ( Recurrent vomiting) Onset (ago): day(s) (5) Description of vomiting: food contents, watery and bilious Description of diarrhea: watery Associated nausea: Yes Associated abdominal pain: Yes Location of pain: epigastric Pain consistency: intermittent Severity: moderate Exacerbating factors: eating Relieving factors: none Context: history of abdominal surgery and marijuana use Associated symptoms: nausea/vomiting and weakness Treatment prior to arrival: other ( ondansetron.) Related Data Allergies Allergy/AdvReac Type Severity Reaction Status Date / Time ethinyl estradiol Allergy Unknown HIVES Verified 01/17/21 18:19 levonorgestrel-ethinyl Allergy Unknown HIVES Verified 01/17/21 18:19 estradiol wheat Allergy Unknown Verified 01/17/21 18:19 Review of Systems Review of Systems: All systems reviewed & are unremarkable except as noted in HPI and below Constitutional: Constitutional: Denies chills and Denies fever(s) Eyes: Eyes: Denies change in vision and Denies photophobia ENT: Denies nasal congestion and Denies sore throat Cardiovascular: Cardiovascular: Denies chest pain and Denies radiating jaw, neck or arm pain Respiratory: Respiratory: Denies cough and Denies dyspnea Gastrointestinal: Gastrointestinal: Reports abdominal pain, Reports diarrhea, Reports nausea and Reports vomiting Genitourinary: Genitourinary: Denies nocturia and Denies dysuria Musculoskeletal: Musculoskeletal: Denies arthralgias and Denies joint swelling Neurologic: Denies vertigo, Reports dizziness, Denies syncope and Reports weakness Hematologic/Lymphatic: Hematologic/Lymphatic: Denies easy bleeding and Denies easy bruising Allergic/Immunologic: Allergic/Immunologic: Denies lip swelling and Denies throat swelling PMFSH Past Medical History Medical History delivery delivered Marijuana abuse, continuous Recurrent abdominal pain Recurrent vomiting Surgical History Surgical History History of appendectomy History of cholecystectomy Social History Social History Gender identity (if verbalized by the patient): Female Exam Const: General: alert and ill appearing acutely ( Mildly) Orientation/consciousness: patient oriented x3 Other: [id number] acute distress. HENMT: Head: normal to inspection Ears: external ears normal, TM's normal bilaterally and EAC's normal General nose exam: Normal nares present Face and sinus: normal facial exam Mouth: Yes dry mucous membranes Throat: posterior oropharynx normal Eyes: Cornea: corneas normal Pupils: Equal, round and reactive pupils present EOM: EOMs intact bilaterally Resp: Effort & Inspection: normal respiratory effort, not labored and no retractions Auscultation: clear to auscultation bilaterally, no rales, no rhonchi and no wheezes Cardio: Rate: regular rate Rhythm: regular rhythm Heart sounds: no murmurs GI: GI Palp: Yes Soft to palpation, Yes Tenderness to
[2021-01-17] MEDS: PROCHLORPERAZINE EDISYLATE 10 MG/2 ML VIAL IV PUSH (18:31)
[2021-01-17] MEDS: ONDANSETRON INJ 4 MG/2 ML VIAL IV PUSH (18:33)
[2021-01-17] MEDS: SODIUM CHLORIDE 0.9% IV 1,000 ML 999 ML IV CONT ×2 (18:34→19:50)
[2021-01-17 18:44] VITALS: BP 129/75; PULSE 108; RESP 18; O2SAT 97
[2021-01-17 18:48] LABS: Basophils Absolute Auto 0.03 K/mm3 (0.00-0.10); Basophils Percent Auto 0.4 % (0.0-1.0); Eosinophils Absolute Auto 0.03 K/mm3 (0.02-0.50); Eosinophils Percent Auto 0.4 % (1.0-6.0); Hematocrit 40.2 % (35.0-49.0); Hemoglobin 13.1 g/dL (12.0-15.0); Immature Granulocyte Absolute 0.09 K/mm3 (0.00-0.00); Immature Granulocyte Percent A 1.1 % (0.0-0.0); Lymphocytes Absolute Auto 2.28 K/mm3 (1.10-4.50); Lymphocytes Percent Auto 26.7 % (18.0-42.0); Mean Corpuscular HGB Conc 32.6 g/dL (32.0-36.0); Mean Corpuscular Hemoglobin 26.5 pg (27.0-31.0); Mean Corpuscular Volume 81.4 fL (78.0-102.0); Mean Platelet Volume 9.8 fl (9.2-11.8); Monocytes Absolute Auto 0.59 K/mm3 (0.10-0.90); Monocytes Percent Auto 6.9 % (2.0-11.0); Neutrophils Absolute Auto 5.5 K/mm3 (1.7-7.2); Neutrophils Percent Auto 64.5 % (50.0-70.0); Platelet Count Result 305 K/mm3 (150-420); Red Blood Count 4.94 M/mm3 (4.20-5.40); Red Cell Distribution Width 13.1 % (11.6-14.4); White Blood Count 8.6 K/mm3 (4.8-10.8)
[2021-01-17 19:05] LABS: Alanine Aminotransferase 138 U/L (14-59); Albumin Level 4.4 g/dL (3.4-5.0); Alkaline Phosphatase 69 U/L (46-116); Anion Gap 9 mmol/L (8-16); Aspartate Amino Transferase 74 U/L (15-37); Bilirubin,Total 0.7 mg/dL (0.00-1.00); Blood Urea Nitrogen 16 mg/dL (7-18); Calcium 8.7 mg/dL (8.5-10.1); Carbon Dioxide 33 mmol/L (21-32); Chloride 101 mmol/L (98-108); Estimated CRCL calculation 96 ml/min; Estimated Glomerular Filt Rate > 60; Glucose 123 mg/dL (70-99); Lipase 67 U/L (73-393); Osmolality Calculated 298 mOsm/kg (285-295); Potassium 3.2 mmol/L (3.5-5.1); Sodium 143 mmol/L (136-145); Total Protein 8.2 g/dL (6.4-8.2)
[2021-01-17 19:10] LABS: Lactic Acid Reflex 0.9 mmol/L (0.4-2.0)
[2021-01-17 19:23] LABS: SARS-CoV-2 Ag Negative (Negative)
--- NOTE | 2021-01-17 19:25 | PC.NURSE ---
Report given JAIME Rivera
[2021-01-17 19:29] LABS: SPREG INTERNAL CONTROL Positive; Serum Qual hCG Negative
[2021-01-17] MEDS: POTASSIUM CHLORIDE 20 MEQ TABLET 40 MEQ PO (19:45)
--- NOTE | 2021-01-17 20:50 | PC.NURSE ---
pt resting per cot, feeling much better after iv fluids.
[2021-01-17 21:19] VITALS: BP 123/76; PULSE 76; RESP 20; TEMP 36.6; O2SAT 97
== END 2021-01-17 21:22 | disposition home or self-care (01) ==
PROVIDERS: Emergency Provider Emergency Medicine
DX: F12.10 Cannabis abuse, uncomplicated (principal); R11.10 Vomiting, unspecified; E87.6 Hypokalemia; E86.0 Dehydration; Z20.822 Contact with and (suspected) exposure to COVID-19
CPT/HCPCS: 36415; 80053; 83605; 83690; 84703; 85025; 87040; 87426; 96361; 96374; 96375; 99283; 99284; A9270; C9803; J0780; J2405; J7030

== ENCOUNTER 2021-06-26 12:22 | Emergency (ER) | payer OTHER, SELFPAY ==
--- NOTE | ~2021-06-26 | XR_ITS ---
EXAMINATION: XR chest 2V DATE: 06/26/2021 12:47 INDICATION: Cough. Wheezing. TECHNIQUE: Frontal and lateral views of the chest were obtained. COMPARISON: Chest 2 views 08/23/2012, CT abdomen and pelvis 01/13/2021 FINDINGS: The chest demonstrates clear lungs without pneumonia, pleural effusion, or pneumothorax. Th e heart size is normal. Surgical clips in the right upper quadrant are likely from cholecystectomy. IMPRESSION: 1. No acute cardiopulmonary disease. Reviewed, dictated and finalized at location A.
--- NOTE | 2021-06-26 12:24 | ED.URI ---
HPI - URI/Sore Throat General Chief Complaint: Upper Respiratory Infection Stated Complaint: cough trouble breathing Time Seen by Provider: 06/26/21 12:25 Source: patient, family and RN notes reviewed History of Present Illness HPI Narrative: Patient is a 30-year-old female who presents the urgent care with complaints of harsh deep cough. Patient states that approximately 1 week ago she woke up with hoarseness and the cough has progressed since then. Patient states she feels that she needs to cough something up but it sitting in her chest . Patient also reports of intermittent shortness of breath. She has been taking Zyrtec without much relief. Denies any fevers, nausea or vomiting. Denies of chest pain. No other acute complaints. No acute distress noted. Patient aware of the plan of care. Some parts of this dictation were generated by voice recognition software and may contain typographical and/or grammatical inaccuracies. Related Data Allergies Allergy/AdvReac Type Severity Reaction Status Date / Time ethinyl estradiol Allergy Unknown HIVES Verified 06/26/21 12:34 levonorgestrel-ethinyl Allergy Unknown HIVES Verified 06/26/21 12:34 estradiol wheat Allergy Rash Verified 06/26/21 12:34 Review of Systems Review of Systems: CONSTITUTIONAL: Denies fever, chills, or sweats. EYES: Denies visual changes, redness, or discharge. ENT: Reports of hoarseness, postnasal drainage CARDIOVASCULAR: Denies chest pain, palpitations, or edema. RESPIRATORY: Reports of deep but nonproductive cough dyspnea GASTROINTESTINAL: Denies abdominal pain, nausea, vomiting, or diarrhea. GENITOURINARY: Denies dysuria or hematuria. SKIN: Denies rash or itching. MUSCULOSKELETAL: Denies back pain, joint pain, or myalgia. NEUROLOGIC: Denies headache, numbness, or weakness. All other systems reviewed are negative, except as documented in HPI. [facility] Past Medical History Medical History delivery delivered Marijuana abuse, continuous Recurrent abdominal pain Recurrent vomiting Surgical History Surgical History History of appendectomy History of cholecystectomy Social History Social History Gender identity (if verbalized by the patient): Female Comments At the time of my signature, I reviewed and agree with the nursing past medical, surgical, social, and family history. There is no relevant family history pertinent to the patient complaint. Exam Narrative: GENERAL: This is a well-nourished, well-developed patient, in no apparent distress. HEAD: normocephalic, atraumatic. EYES: PERRL. Sclera clear/white. Vision is grossly intact. EARS: External ears normal, auditory canals clear and without drainage, TMs normal without perforation. Hearing grossly intact. NOSE: External nose normal with no obvious nasal discharge, nares without redness, no rhinorrhea. THROAT: Mucous membranes moist, posterior pharynx clear. Mild postnasal drainage NECK: Neck supple CARDIOVASCULAR: Regular rate and rhythm RESPIRATORY: Inspiratory and expiratory wheezes throughout with diminished left lower lobe SKIN: warm, intact with no suspicious lesions or rash, good texture and turgor. NEURO: awake, alert, and oriented to person, place and time. There were no obvious focal neurologic abnormalities. EXTREMITIES: No clubbing, cyanosis, or edema. Course Course Level of Care: Express Care Visit Vital Signs Vital signs: Vital Signs Temperature 99.6 F 06/26/21 12:26 Pulse Rate 124 H 06/26/21 12:26 Respiratory Rate 18 06/26/21 12:26 Blood Pressure 153/78 H 06/26/21 12:26 Pulse Oximetry 100 06/26/21 12:26 Temperature 99.6 F 06/26/21 12:35 Pulse Rate 124 H 06/26/21 12:35 Respiratory Rate 18 06/26/21 12:35 Blood Pressure 153/78 H 06/26/21 12:35 Pulse Oximetry 100 06/26/21 1
[2021-06-26 12:26] VITALS: BP 153/78; PULSE 124; RESP 18; TEMP 37.6; O2SAT 100
[2021-06-26 12:35] VITALS: BP 153/78; PULSE 124; RESP 18; TEMP 37.6; O2SAT 100
== END 2021-06-26 12:57 | disposition home or self-care (01) ==
PROVIDERS: Emergency Provider Nurse Practitioner Family; PCP Internal Medicine
DX: J40 Bronchitis, not specified as acute or chronic (principal)
CPT/HCPCS: 71046; 99213; G0463

== ENCOUNTER 2021-11-19 16:02 | Emergency (ER) | payer OTHER, SELFPAY ==
[2021-11-19 16:05] VITALS: BP 125/73; PULSE 103; RESP 18; TEMP 36.4; O2SAT 98
--- NOTE | 2021-11-19 16:18 | ED_ITS ---
HPI - General Adult General Chief complaint: Nausea/Vomiting/Diarrhea Stated complaint: voming, dehydration Time Seen by Provider: 11/19/21 16:14 History of Present Illness HPI narrative: Lisa is a 31F with a PMH of hyperemesis gravidarum that presented to the ER with nausea and vomiting. It started after she at some [place] food that was bad. Since then she has had countless episodes of non-bloody vomiting and diarrhea. There has been no blood, CP, SOB, fevers, or chills. Related Data Allergies Allergy/AdvReac Type Severity Reaction Status Date / Time ethinyl estradiol Allergy Unknown HIVES Verified 11/19/21 16:16 levonorgestrel-ethinyl Allergy Unknown HIVES Verified 11/19/21 16:16 estradiol wheat Allergy Rash Verified 11/19/21 16:16 Review of Systems Review of Systems: All systems reviewed & are unremarkable except as noted in HPI and below PMFSH Past Medical History Medical History delivery delivered Marijuana abuse, continuous Recurrent abdominal pain Recurrent vomiting Surgical History Surgical History History of appendectomy History of cholecystectomy Social History Social History Gender identity (if verbalized by the patient): Female Exam Const: General: healthy appearing, no acute distress and alert Nutritional Appearance: well nourished Orientation/consciousness: patient oriented x3 Limitations: no limitations and altered mental status HENMT: Head: normal to inspection Ears: external ears normal General n ose exam: Normal external nose present Other: dry mucous membranes Eyes: Conjunctivae: conjunctivae normal Pupils: Equal, round and reactive pupils present Neck: Neck: normal visual inspection Chest: Chest palpation & inspection: normal inspection of the chest Resp: Effort & Inspection: normal respiratory effort Auscultation: clear to auscultation bilaterally Cardio: Rate: regular rate Rhythm: regular rhythm GI: Other: No TTP, rebound tenderness or guarding. Normal BS Skin: General skin exam: normal color Neuro: General: patient oriented x3 and moves all extremities Extrem: General: normal to inspection Psych: Mental Status: mental status grossly normal Course Course Emergency Course: ordered zofran, fluids and labs Labs showed transaminitis so a hepatitis panel was sent out. Discharge Plan Discharge Clinical Impression: Gastroenteritis, Transaminitis Patient Disposition: Home, Self-Care Condition: Stable Instructions: Food Poisoning (ED) Additional Instructions: Please return for any new, concerning or worsening symptoms. Please follow up with your regular doctor for further workup. Prescriptions: New ondansetron 4 mg tablet,disintegrating 4 mg PO Q8H PRN (Reason: nausea and vomiting) Qty: 10 0RF Follow-up/Referrals: Marcus,MD Gerardo [Primary Care Provider] -
[2021-11-19] MEDS: SODIUM CHLORIDE 0.9% IV 1,000 ML 999 ML IV CONT (16:34)
[2021-11-19] MEDS: ONDANSETRON INJ 4 MG/2 ML VIAL IV PUSH (16:36)
[2021-11-19 16:42] LABS: Basophils Absolute Auto 0.03 K/mm3 (0.00-0.10); Basophils Percent Auto 0.3 % (0.0-1.0); Hematocrit 39.9 % (35.0-49.0); Hemoglobin 12.8 g/dL (12.0-15.0); Immature Granulocyte Absolute 0.06 K/mm3 (0.00-0.00); Immature Granulocyte Percent A 0.5 % (0.0-0.0); Lymphocytes Absolute Auto 1.53 K/mm3 (1.10-4.50); Lymphocytes Percent Auto 13.8 % (18.0-42.0); Mean Corpuscular HGB Conc 32.1 g/dL (32.0-36.0); Mean Corpuscular Volume 81.1 fL (78.0-102.0); Mean Platelet Volume 9.7 fl (9.2-11.8); Monocytes Absolute Auto 0.58 K/mm3 (0.10-0.90); Monocytes Percent Auto 5.2 % (2.0-11.0); Neutrophils Absolute Auto 8.9 K/mm3 (1.7-7.2); Neutrophils Percent Auto 80.2 % (50.0-70.0); Platelet Count Result 368 K/mm3 (150-420); Red Blood Count 4.92 M/mm3 (4.20-5.40); Red Cell Distribution Width 13.3 % (11.6-14.4); White Blood Count 11.1 K/mm3 (4.8-10.8)
[2021-11-19 16:43] LABS: Add Urine Microscopic? YES; Appearance Urine Clear (Clear); Bilirubin Urine 1+ (Negative); Blood Urine Negative (Negative); Color Urine Light Yellow (Yellow); Glucose Urine UA Negative (Negative); Ketones Urine 2+ (Negative); Leukocyte Esterase Ur Trace (Negative); Nitrate Urine Negative (Negative); Protein Urine 1+ (Negative); Specific Grav Ur 1.015 (1.010-1.020)
[2021-11-19 16:48] LABS: RBC Urine 0-2 /hpf (0-2); Squamous Epithelial Cell Urine Few /hpf (Few); WBC Urine 0-3 /hpf (0-3)
[2021-11-19 16:49] LABS: Bacteria Urine Trace /hpf; Mucus Urine Few /lpf
[2021-11-19 16:58] LABS: Lactic Acid Reflex 1.5 mmol/L (0.4-2.0)
[2021-11-19 17:07] LABS: Alanine Aminotransferase 107 U/L (14-59); Albumin Level 4.5 g/dL (3.4-5.0); Alkaline Phosphatase 73 U/L (46-116); Anion Gap 11 mmol/L (8-16); Aspartate Amino Transferase 56 U/L (15-37); Bilirubin,Total 0.8 mg/dL (0.00-1.00); Blood Urea Nitrogen 25 mg/dL (7-18); Calcium 9.4 mg/dL (8.5-10.1); Carbon Dioxide 30 mmol/L (21-32); Chloride 98 mmol/L (98-108); Estimated CRCL calculation 88 ml/min; Estimated Glomerular Filt Rate > 60; Glucose 139 mg/dL (70-99); Lipase 61 U/L (73-393); Magnesium 2.5 mg/dL (1.8-2.4); Osmolality Calculated 294 mOsm/kg (285-295); Potassium 3.4 mmol/L (3.5-5.1); Sodium 139 mmol/L (136-145); Total Protein 8.4 g/dL (6.4-8.2)
[2021-11-19 17:45] VITALS: BP 121/60; PULSE 76; RESP 16; TEMP 36.7; O2SAT 98
[2021-11-23 11:47] LABS: Hepatitis A Antibody IgM Nonreactive; Hepatitis B Core Antibody Nonreactive (Nonreactive); Hepatitis B Surface Antigen Nonreactive (Nonreactive); Hepatitis C Signal to Cutoff 0.02 ratio (<1.00); Hepatitis C Virus Antibody Nonreactive (Nonreactive)
== END 2021-11-19 17:50 | disposition home or self-care (01) ==
PROVIDERS: Emergency Provider Family Medicine; PCP Internal Medicine
DX: K52.9 Noninfective gastroenteritis and colitis, unspecified (principal); R74.01 Elevation of levels of liver transaminase levels
CPT/HCPCS: 36415; 80053; 80074; 81001; 83605; 83690; 83735; 85025; 96361; 96374; 99284; J2405; J7030

== ENCOUNTER 2022-01-16 00:13 | Emergency (ER) | payer OTHER, SELFPAY ==
[2022-01-16 00:15] VITALS: BP 145/108; PULSE 120; RESP 20; TEMP 36.6; O2SAT 98
[2022-01-16] MEDS: ONDANSETRON HCL ODT 4 MG TABLET PO (00:17)
[2022-01-16 00:41] LABS: Hematocrit 42.9 % (35.0-49.0); Mean Corpuscular HGB Conc 32.6 g/dL (32.0-36.0); Mean Corpuscular Hemoglobin 26.6 pg (27.0-31.0); Mean Corpuscular Volume 81.4 fL (78.0-102.0); Mean Platelet Volume 9.6 fl (9.2-11.8); Platelet Count Result 439 K/mm3 (150-420); Red Blood Count 5.27 M/mm3 (4.20-5.40); Red Cell Distribution Width 13.2 % (11.6-14.4); White Blood Count 14.5 K/mm3 (4.8-10.8)
--- NOTE | 2022-01-16 00:45 | ED.NAVMDI ---
HPI - Nausea/Vomiting/Diarrhea General Chief complaint: Nausea/Vomiting/Diarrhea Stated complaint: THROWING UP Time Seen by Provider: 01/16/22 00:14 Source: patient Mode of arrival: ambulatory Limitations: no limitations History of Present Illness HPI Narrative: PATIENT IS A 31-YEAR-OLD WHITE FEMALE WITH A HISTORY OF THC ABUSE AND NAUSEA VOMITING DIARRHEA THIS BEING HER 8TH VISIT TO THE EMERGENCY DEPARTMENT FOR NAUSEA VOMITING AND DIARRHEA SINCE SEPTEMBER OF 2019. PATIENT RELATES HER SYMPTOMS OVER THE PAST 3 DAYS FROM HAVING EATEN A BAD HOT DOG . SHE HAS NOT BEEN ABLE TO KEEP ANYTHING DOWN FOR THE LAST 2 DAYS. AND LAST 24 HOURS SHE SAYS SHE HAS THROWN UP MOSTLY WATER 30 TIMES AND HAS HAD 2 DIARRHEAL STOOLS COMPLAINS OF UPPER ABDOMINAL CRAMPING. THERE HAS BEEN NO BLOOD IN HER STOOL SHE HAS NOT VOMITED ANY BLOOD. DENIES ANY OTHER CHEST PAIN BACK PAIN OR OTHER PAINS. DENIES ANY FEVER RASH ITCHING COUGH RUNNY NOSE PROBLEMS WALKING TALKING SEE HER HEARING. Related Data Allergies Allergy/AdvReac Type Severity Reaction Status Date / Time ethinyl estradiol Allergy Unknown HIVES Verified 11/19/21 16:16 levonorgestrel-ethinyl Allergy Unknown HIVES Verified 11/19/21 16:16 estradiol wheat Allergy Rash Verified 11/19/21 16:16 Review of Systems Review of Systems: All systems reviewed & are unremarkable except as noted in HPI and below Constitutional: Constitutional: Reports anorexia, Denies body ache(s), Reports fatigue, Denies fever(s), Denies headache(s), Reports increased appetite, Denies lethargy, Reports malaise, Reports poor appetite and Denies weakness Eyes: Eyes: Reports as per HPI and Reports no additional eye complaints ENT: Reports system reviewed and no additional complaints, except as documented Cardiovascular: Cardiovascular: Reports as per HPI and Reports no additional cardiovascular complaints Respiratory: Respiratory: Reports as per HPI and Reports no additional respiratory complaints Gastrointestinal: Gastrointestinal: Reports as per HPI and Reports no additional gastrointestinal complaints Genitourinary: Genitourinary: Reports no additional female genitourinary complaints and Reports as per HPI Musculoskeletal: Musculoskeletal: Reports no additional musculoskeletal complaints Neurologic: Reports system reviewed and no additional complaints, except as documented [facility] Past Medical History Medical History (Updated 01/16/22 @ 02:35 by Pipe Mast MD) Cannabinoid hyperemesis syndrome delivery delivered Marijuana abuse, continuous Recurrent abdominal pain Recurrent vomiting Surgical History Surgical History History of appendectomy History of cholecystectomy Social History Social History Gender identity (if verbalized by the patient): Female Exam Narrative: PATIENT IS OBESE WHITE FEMALE MODERATE DISTRESS LYING UNDER A BLANKET SHE BROUGHT FROM HOME. BLOOD PRESSURE 145/108 PULSE 120 RESPIRATIONS 20 TEMPERATURE 36.6? CENTIGRADE O2 SAT 90% ON ROOM AIR. HEAD IS NORMOCEPHALIC ATRAUMATIC EYES CONJUNCTIVA PINK SCLERA NONICTERIC OROPHARYNX CLEAR WITH MOIST MUCOUS MEMBRANES NECK IS SUPPLE NO LYMPHADENOPATHY. BACK IS NONTENDER. LUNGS ARE CLEAR TO AUSCULTATION. HEART RAPID WITHOUT MURMURS GALLOPS RUBS REGULAR. . ABDOMEN EPIGASTRIC TENDERNESS MILD WITHOUT REBOUND NO HEPATOSPLENOMEGALY OR MASSES POSITIVE BOWEL SOUNDS NO CVA TENDERNESS NO ABDOMINAL BRUITS . EXTREMITIES NO CYANOSIS CLUBBING OR EDEMA OR TENDERNESS. NEUROLOGICAL SHE IS ALERT AND ORIENTED MOTOR AND SINCE WERE GROSSLY INTACT SKIN IS WARM AND DRY WITHOUT LESIONS OR RASH. Course Course Emergency Course: PATIENT WAS GIVEN A BOLUS OF NORMAL SALINE ZOFRAN 4 MG ODT AND 4 MG IV WAS GIVEN PROTONIX 80 MG IV PUSH WAS GIVEN. Patient received the 2 L fluid normal saline with 20 KCL over 2 hours, and Toradol 30 mg IV she felt much
[2022-01-16] MEDS: SODIUM CHLORIDE 0.9% IV 1,000 ML 999 ML IV CONT (00:48)
[2022-01-16] MEDS: PANTOPRAZOLE SODIUM IV 40 MG VIAL 80 MG IV PUSH (00:49)
[2022-01-16] MEDS: ONDANSETRON INJ 4 MG/2 ML VIAL IV PUSH (00:49)
[2022-01-16 00:50] LABS: SPREG INTERNAL CONTROL Positive; Serum Qual hCG Negative
[2022-01-16 00:58] LABS: Alanine Aminotransferase 149 U/L (14-59); Albumin Level 4.9 g/dL (3.4-5.0); Alkaline Phosphatase 68 U/L (46-116); Anion Gap 10 mmol/L (8-16); Aspartate Amino Transferase 73 U/L (15-37); Bilirubin,Total 0.8 mg/dL (0.00-1.00); Blood Urea Nitrogen 27 mg/dL (7-18); Carbon Dioxide 30 mmol/L (21-32); Chloride 101 mmol/L (98-108); Estimated CRCL calculation 81 ml/min; Estimated Glomerular Filt Rate > 60; Glucose 155 mg/dL (70-99); Lipase 57 U/L (73-393); Magnesium 2.4 mg/dL (1.8-2.4); Osmolality Calculated 300 mOsm/kg (285-295); Sodium 141 mmol/L (136-145); Total Protein 8.9 g/dL (6.4-8.2)
[2022-01-16] MEDS: KCL 20MEQ/0.9% SOD CHL 1,000 ML 500 ML IV CONT (01:24)
[2022-01-16] MEDS: KETOROLAC 30 MG/ML VIAL (*BKC) IV PUSH (01:47)
[2022-01-16 02:13] LABS: Add Urine Microscopic? YES; Appearance Urine Clear (Clear); Bilirubin Urine 1+ (Negative); Blood Urine Negative (Negative); Color Urine Yellow (Yellow); Glucose Urine UA Negative (Negative); Ketones Urine 2+ (Negative); Leukocyte Esterase Ur Negative (Negative); Nitrate Urine Negative (Negative); Protein Urine 2+ (Negative); Urobilinogen Urine 0.2 mg/dL (0.2-1.0)
[2022-01-16 02:15] VITALS: BP 136/87; PULSE 88; RESP 20; O2SAT 98
[2022-01-16 02:19] LABS: RBC Urine 0-2 /hpf (0-2); WBC Urine 0-3 /hpf (0-3)
[2022-01-16 02:20] LABS: Bacteria Urine Trace /hpf; Mucus Urine Few /lpf; Squamous Epithelial Cell Urine Few /hpf (Few)
[2022-01-16 02:34] VITALS: BP 100/74; PULSE 100; RESP 18; TEMP 36.2; O2SAT 99
== END 2022-01-16 02:45 | disposition home or self-care (01) ==
PROVIDERS: Emergency Provider Emergency Medicine; PCP Physician Assistant
DX: R11.10 Vomiting, unspecified (principal); F12.90 Cannabis use, unspecified, uncomplicated; R19.7 Diarrhea, unspecified
CPT/HCPCS: 36415; 80053; 81001; 83690; 83735; 84703; 85027; 96361; 96365; 96375; 99284; A9270; C9113; J1885; J2405; J3480; J7030

== ENCOUNTER 2023-02-27 20:28 | Observation (INO) | payer OTHER, SELFPAY ==
--- NOTE | ~2023-02-27 | XR_ITS ---
EXAMINATION: XR chest 1V portable DATE: 02/27/2023 21:37 INDICATION: Cough and congestion TECHNIQUE: frontal view of the chest was obtained. COMPARISON: Chest radiograph dated 06/26/2021 FINDINGS: The lungs are clear with no focal airspace opacities, pulmonary edema, pleural effusion or pneumothor ax. The cardiomediastinal silhouette is normal. Cholecystectomy clips in right upper quadrant. IMPRESSION: 1. No acute cardiopulmonary disease. Reviewed, dictated and finalized at location A. [facility]
--- NOTE | ~2023-02-27 | CT_ITS ---
EXAMINATION: CT abdomen pelvis w con DATE: 02/27/2023 22:14 INDICATION: Abdominal pain with vomiting TECHNIQUE: Computed tomography (CT) of the abdomen and pelvis was performed with 100 mL Omnipaque-350 intravenous contrast. Automated exposure control and iterative reconstruction technique were employe d. The dose-length product was 1084.13 mGy-cm. COMPARISON: 01/13/2021 FINDINGS: Extensive tree-in-bud opacities in the bilateral lower lobes. Heart size is normal. No pericardial or pleural effusion. Focal hepatic steatosis at the ligamentum teres. Cholecystectomy clips the gallbla dder fossa. Spleen, pancreas, bilateral adrenal glands and kidneys are normal. No inflammatory strand ing surrounding a small appendiceal stump versus diverticulum at the tip the cecum. Bowels are otherw ise unremarkable. 2.4 cm peripherally enhancing left corpus luteum cyst. Bladder, anteverted uterus a nd right adnexa are unremarkable. No free intraperitoneal gas or fluid. No pathologically enlarged ab dominal or pelvic lymphadenopathy. Moderate to severe lower lumbar spondylosis. IMPRESSION: 1. Tree-in-bud opacities in bilateral lower lobes consistent with endobronchial spread of disease eit her pneumonia, aspiration or pulmonary hemorrhage. Reviewed, dictated and finalized at location A. [employer] IMPRESSION: 1. Tree-in-bud opacities in bilateral lower lobes consistent with endobronchial spread of disease either pneumonia, aspiration or pulmonary hemorrhage.
[2023-02-27 20:30] VITALS: BP 128/105; PULSE 110; RESP 20; TEMP 37.3; O2SAT 97
[2023-02-27 21:17] LABS: Influenza A QL RT-PCR Negative (Negative); Influenza B QL RT-PCR Negative (Negative); RSV RNA, RT-PCR Negative (Negative); SARS-CoV-2 RNA PCR Negative (Negative)
[2023-02-27 21:18] LABS: Pregnancy On Board Control Positive; Urine Pregnancy Test Negative
[2023-02-27 21:32] LABS: Basophils Absolute Auto 0.07 K/mm3 (0.00-0.10); Basophils Percent Auto 0.5 % (0.0-1.0); Hemoglobin 12.5 g/dL (12.0-15.0); Immature Granulocyte Absolute 0.28 K/mm3 (0.00-0.00); Immature Granulocyte Percent A 1.9 % (0.0-0.0); Immature Platelet Fraction Pct 1.1 % (1.0-7.0); Lymphocytes Absolute Auto 4.08 K/mm3 (1.10-4.50); Mean Corpuscular HGB Conc 33.8 g/dL (32.0-36.0); Mean Corpuscular Hemoglobin 27.8 pg (27.0-31.0); Mean Corpuscular Volume 82.2 fL (78.0-102.0); Mean Platelet Volume 8.9 fl (9.2-11.8); Monocytes Absolute Auto 1.29 K/mm3 (0.10-0.90); Monocytes Percent Auto 8.5 % (2.0-11.0); Neutrophils Absolute Auto 9.4 K/mm3 (1.7-7.2); Neutrophils Percent Auto 62.1 % (50.0-70.0); Platelet Count Result 552 K/mm3 (150-420); Red Cell Distribution Width 12.5 % (11.6-14.4); White Blood Count 15.1 K/mm3 (4.8-10.8)
[2023-02-27] MEDS: KETOROLAC 30 MG/ML VIAL (*BKC) IV PUSH (21:42)
[2023-02-27] MEDS: ONDANSETRON INJ 4 MG/2 ML VIAL IV PUSH (21:42)
[2023-02-27] MEDS: SODIUM CHLORIDE 0.9% IV 1,000 ML 999 ML IV CONT (21:42)
[2023-02-27 21:44] LABS: Partial Thromboplastin Time 22.9 SEC (23.90-30.70); Prothrombin Time 11.2 Seconds (9.50-12.10)
[2023-02-27 21:45] LABS: Alanine Aminotransferase 33 U/L (14-59); Albumin Level 4.2 g/dL (3.4-5.0); Alkaline Phosphatase 69 U/L (46-116); Anion Gap 7 mmol/L (8-16); Aspartate Amino Transferase 17 U/L (15-37); Bilirubin,Total 0.6 mg/dL (0.00-1.00); Blood Urea Nitrogen 26 mg/dL (7-18); Calcium 9.7 mg/dL (8.5-10.1); Carbon Dioxide 34 mmol/L (21-32); Chloride 98 mmol/L (98-108); Estimated CRCL calculation 86 ml/min; Estimated Glomerular Filt Rate > 60; Glucose 130 mg/dL (70-99); Lipase 18 U/L (16-77); Osmolality Calculated 294 mOsm/kg (285-295); Potassium 2.7 mmol/L (3.5-5.1); Sodium 139 mmol/L (136-145); Total Protein 8.4 g/dL (6.4-8.2)
[2023-02-27] MEDS: POTASSIUM BICARBONATE 25 MEQ TABEF 50 MEQ PO (22:16)
[2023-02-27] MEDS: KCL 20 MEQ/SW 100 ML 100 ML 50 MEQ IVPB (22:21)
--- NOTE | 2023-02-27 22:36 | ED.URI ---
HPI - URI/Sore Throat General Chief Complaint: Upper Respiratory Infection Stated Complaint: FLU LIKE SYMPTOMS Time Seen by Provider: 02/27/23 20:30 Source: patient and family Mode of arrival: ambulatory Limitations: no limitations History of Present Illness HPI Narrative: this is a 32-year-old female that presents with some cough congestion cough for the past 3 weeks with some that is nonproductive with a low-grade fever and chills with some upper abdominal discomfort and pain with no chest pain, mild shortness of breath with coarse breath sounds with no audible wheezing no diarrhea constipation. MD elicited complaint: fever, cough and nasal congestion Onset (ago): day(s) Consistency: constant Severity: moderate Description of mucous: clear Able to tolerate fluids by mouth: Yes Related Data Home Medications Medication Instructions Recorded Confirmed No Home Medications 02/27/23 02/27/23 Allergies Allergy/AdvReac Type Severity Reaction Status Date / Time ethinyl estradiol Allergy Unknown HIVES Verified 02/27/23 20:59 levonorgestrel-ethinyl Allergy Unknown HIVES Verified 02/27/23 20:59 estradiol wheat Allergy Rash Verified 02/27/23 20:59 Review of Systems Review of Systems: All systems reviewed & are unremarkable except as noted in HPI and below PMFSH Past Medical History Medical History Cannabinoid hyperemesis syndrome delivery delivered Marijuana abuse, continuous Recurrent abdominal pain Recurrent vomiting Surgical History Surgical History History of appendectomy History of cholecystectomy Social History Social History Gender identity (if verbalized by the patient): Female Exam Const: General: no acute distress Nutritional Appearance: obese Orientation/consciousness: patient oriented x3 Limitations: no limitations HENMT: Face and sinus: normal facial exam and sinus tenderness Neck: Neck: normal visual inspection Chest: Chest palpation & inspection: normal inspection of the chest Resp: Effort & Inspection: normal respiratory effort Auscultation: clear to auscultation bilaterally Cardio: Rate: regular rate Rhythm: regular rhythm GI: GI Palp: Yes Soft to palpation and Yes Tenderness to palpation present (GI) Back/Spine/Pelvis: Back: no CVA tenderness Skin: General skin exam: normal color Rashes: no rashes Neuro: General: patient oriented x3 and moves all extremities Extrem: General: normal to inspection and no clubbing, cyanosis or edema Psych: Mental Status: mental status grossly normal Affect: normal affect Course Course Emergency Course: Patient had blood work performed and has elevated white blood cell count 34295 potassium level 2.7 chest x-ray was unremarkable a CT scan abdomen pelvis showed opacities and patient received IV potassium and p.o. potassium and with what looks like on CT scan consistent with pneumonia will give the patient ceftriaxone along with azithromycin admit the patient to hospital. Vital Signs Vital signs: Vital Signs Temperature 37.3 C 02/27/23 20:30 Pulse Rate 110 H 02/27/23 20:30 Respiratory Rate 20 02/27/23 20:30 Blood Pressure 128/105 H 02/27/23 20:30 Pulse Oximetry 97 02/27/23 20:30 Oxygen Delivery Room Air 02/27/23 20:30 Temperature 37.3 C 02/27/23 20:30 Pulse Rate 110 H 02/27/23 20:30 Respiratory Rate 20 02/27/23 20:30 Blood Pressure 128/105 H 02/27/23 20:30 Pulse Oximetry 97 02/27/23 20:30 Oxygen Delivery Room Air 02/27/23 20:30 MDM - URI/Sore Throat Lab Data 02/27/23 21:26 02/27/23 21:26 Labs: Lab Results 02/27/23 02/27/23 02/27/23 Range/Units 20:35 21:13 21:26 WBC 15.1 H (4.8-10.8) K/mm3 RBC 4.50 (4.20-5.40) M/mm3 Hgb 12.5 (12.0-15.0) g/dL Hct 37.
[2023-02-27] MEDS: ACETAMINOPHEN 325 MG TABLET 650 MG PO (23:35)
[2023-02-28] MEDS: AZITHROMYCIN 500 MG/NS 250 ML 500 MG/250 ML BAG 250 MG IVPB (00:03)
[2023-02-28 00:10] VITALS: BP 156/102; PULSE 87; RESP 17; TEMP 37; O2SAT 97
[2023-02-28] MEDS: SODIUM CHLORIDE 0.9% IV 1,000 ML 100 ML IV CONT ×2 (00:15→15:22)
--- NOTE | 2023-02-28 00:25 | ADMGEN ---
This patient, Lisa Freeman, was admitted to 2nd Floor Room 227-1. Patient/family oriented to hospital policies and general routines including ID bracelet, bed and alarms, pain management, procedures, bathroom and other care routines, personal items, smoking policy, room service/diet, and visiting hours. Information on how to activate the Rapid Response Team has been discussed. Patient/Family are encouraged to report perceived risks to care and to ask questions if they do not understand what they are told or what they should do.
[2023-02-28 00:31] VITALS: BMI 39.4
[2023-02-28] MEDS: MORPHINE SULFATE (*CRX) 2 MG/ML INJ IV PUSH ×2 (00:53→07:07)
[2023-02-28] MEDS: METOCLOPRAMIDE HCL 5 MG TABLET PO ×4 (00:56→20:43)
--- NOTE | 2023-02-28 05:20 | PC.NURSE ---
Patient was admitted to the 2nd floor at 0005 on the for pneumonia. Patient's WBC was elevated at 15.[address] image of chest/abdomen showed tree in bud opacities in bilateral lower lobes consistent with pneumonia. Patient was very tearful and in a great deal of pain when admitted. Dr. Segura was notified, and placed orders for 2 mg IV morphine given at 0053 and 5 mg of PO Reglan given at 0056. Patient was upset that her would not be allowed to spend the night. Patient was reassured that her could stay until she fell asleep. Patient's left about 0200. Patient's vitals were WNL with the exception of blood pressure; systolic and diastolic pressures were both elevated. Patient states that she does not have a medical history of high blood pressure. Patient has normal saline running at 100 mL/hr. She is able to walk with stand by assist to and from the toilet. Patient has slept, but has also talked with her on the cell phone.
[2023-02-28 05:28] LABS: Basophils Absolute Auto 0.03 K/mm3 (0.00-0.10); Basophils Percent Auto 0.3 % (0.0-1.0); Hematocrit 28.8 % (35.0-49.0); Hemoglobin 10.8 g/dL (12.0-15.0); Immature Granulocyte Absolute 0.21 K/mm3 (0.00-0.00); Lymphocytes Percent Auto 20.9 % (18.0-42.0); Mean Corpuscular HGB Conc 37.5 g/dL (32.0-36.0); Mean Corpuscular Hemoglobin 33.2 pg (27.0-31.0); Mean Corpuscular Volume 88.6 fL (78.0-102.0); Mean Platelet Volume 9.3 fl (9.2-11.8); Monocytes Absolute Auto 0.88 K/mm3 (0.10-0.90); Monocytes Percent Auto 8.4 % (2.0-11.0); Neutrophils Absolute Auto 7.2 K/mm3 (1.7-7.2); Neutrophils Percent Auto 68.4 % (50.0-70.0); Platelet Count Result 390 K/mm3 (150-420); Red Blood Count 3.25 M/mm3 (4.20-5.40); Red Cell Distribution Width 13.3 % (11.6-14.4); White Blood Count 10.5 K/mm3 (4.8-10.8)
[2023-02-28 05:45] LABS: Alanine Aminotransferase 29 U/L (14-59); Albumin Level 3.4 g/dL (3.4-5.0); Alkaline Phosphatase 54 U/L (46-116); Anion Gap 5 mmol/L (8-16); Aspartate Amino Transferase 15 U/L (15-37); Bilirubin,Total 0.5 mg/dL (0.00-1.00); Blood Urea Nitrogen 17 mg/dL (7-18); Calcium 8.6 mg/dL (8.5-10.1); Carbon Dioxide 34 mmol/L (21-32); Chloride 100 mmol/L (98-108); Estimated CRCL calculation 100 ml/min; Estimated Glomerular Filt Rate > 60; Glucose 126 mg/dL (70-99); Osmolality Calculated 291 mOsm/kg (285-295); Potassium 2.9 mmol/L (3.5-5.1); Sodium 139 mmol/L (136-145); Total Protein 6.9 g/dL (6.4-8.2)
[2023-02-28] MEDS: BENZONATATE 100 MG CAPSULE PO ×3 (07:09→18:47)
--- NOTE | 2023-02-28 07:36 | PM.SD2 ---
Same Day Admit/Disch: HPI History of Present Illness Chief complaint: PNEUMONIA HYPOKALEMIA Narrative: Lisa Freeman is a 32 [place] [address] Emergency Room Visit Note Signed Patient: Lisa Freeman MR#: [id number] : 1990 Acct:[id number] Age: 32 ADM Date: 02/27/23 [facility] Attending [facility]: cc: Stephen Segura MD; Yuliana, Bernabe Ponce PA-C~ HPI - URI/Sore Throat General Chief Complaint: Upper Respiratory Infection Stated Complaint: FLU LIKE SYMPTOMS Time Seen by Provider: 02/27/23 20:30 Source: patient and family Mode of arrival: ambulatory Limitations: no limitations History of Present Illness HPI Narrative: ?this is a 32-year-old female that presents with some cough congestion cough for the past 3 weeks with some that is nonproductive with a low-grade fever and chills with some upper abdominal discomfort and pain with no chest pain, mild shortness of breath with coarse breath sounds with no audible wheezing no diarrhea constipation. MD elicited complaint: fever, cough and nasal congestion Onset (ago): day(s) Consistency: constant Severity: moderate Description of mucous: clear Able to tolerate fluids by mouth: Yes Related Data PMFSH Past Medical History Medical History Cannabinoid hyperemesis syndrome delivery delivered Marijuana abuse, continuous Recurrent abdominal pain Recurrent vomiting Surgical History Surgical History History of appendectomy History of cholecystectomy Social History Social History Smoking status: Never smoker Alcohol intake: never Substance use: current Substance use type: marijuana Last use: 02/28/2023 Do You Feel Safe in your Home?: Yes Lack of Transportation: No Lack of Food: Never True Current Housing: I Have Housing Concerned About Future Housing: No Difficulty Paying Gas/Electric Bills: No Difficulty Paying for Meds: No Currently Unemployed: No Education: High School Diploma/GED Difficulty w/ Childcare or Family Care: No Gender identity (if verbalized by the patient): Female Spiritual care concerns: No Same Day Admit/Disch: Med Pre-admit Medications Home Medications Medication Instructions Recorded Confirmed Type albuterol sulfate 90 mcg/actuation 2 puff inhalation QID PRN 03/01/23 Rx aerosol inhaler shortness of breath or wheezing #8.5 grams azithromycin 250 mg tablet See Rx Instructions PO .COMPLEX #6 03/01/23 Rx (Zithromax Z-Doc) tabs ondansetron 4 mg disintegrating 4 mg PO Q8H PRN nausea and 03/01/23 Rx tablet vomiting #14 tabs potassium chloride 20 mEq 20 meq PO BID #30 tabs 03/01/23 Rx tablet,extended release Review of Systems Review of Systems coughing , shortness of breath , Hypkalemia All systems reviewed & are unremarkable except as noted in HPI and below Exam Const: General: cooperative, comfortable and Physically active Nutritional Appearance: well nourished Orientation/consciousness: oriented to person, oriented to place, oriented to time and patient oriented x3 HENMT: Head: normal to inspection Mouth: Yes Normal oral and palatal mucosa present and Yes lip normal Eyes: General: appearance normal, both eyes and all related structures Visual Johnson: normal visual johnson by confrontation Eyelids: eyelids normal Conjunctivae: conjunctivae normal Pupils: Equal, round and reactive pupils present Neck: Neck: normal visual inspection Chest: Chest palpation & inspection: normal inspection of the chest Resp: Effort & Inspection: normal respiratory effort and Actively coughing Auscultation: breath sounds absent and diminished lung sounds Cardio: Jugular
[2023-02-28 08:00] VITALS: BP 138/94; PULSE 63; RESP 18; TEMP 36.7; O2SAT 97
[2023-02-28] MEDS: KETOROLAC 15 MG/ML VIAL (*BKC) IV PUSH (08:27)
[2023-02-28] MEDS: PANTOPRAZOLE SODIUM IV 40 MG VIAL IV PUSH ×2 (08:28→20:43)
[2023-02-28] MEDS: KCL 20 MEQ/SW 100 ML 100 ML 50 MEQ IVPB ×2 (08:32→15:22)
[2023-02-28] MEDS: ONDANSETRON INJ 4 MG/2 ML VIAL IV PUSH (09:06)
[2023-02-28] MEDS: CAPSAICIN 0.025% CREAM 60 GM TUBE 1 APPLIC TOPICAL (09:06)
[2023-02-28] MEDS: ACETAMINOPHEN 325 MG TABLET 650 MG PO (12:44)
[2023-02-28 13:14] LABS: Potassium 2.8 mmol/L (3.5-5.1)
--- NOTE | 2023-02-28 13:53 | PC.NURSE ---
sonl here and dc orders went over with both. verbalizes an understanding. dc to son auto per wc. she claims she feels better. denies any nausea. no word searching at this time.
[2023-02-28] MEDS: POTASSIUM CHLORIDE 20 MEQ PACKET (FOR LIQUID) 40 MEQ PO (14:19)
[2023-02-28 16:00] VITALS: BP 186/114; PULSE 88; RESP 16; TEMP 36.7; O2SAT 97
[2023-02-28] MEDS: SUCRALFATE SUSP 100 MG/ML 10 ML UDC 1000 MG PO ×2 (17:04→20:43)
[2023-02-28] MEDS: AZITHROMYCIN 500 MG/NS 250 ML BAG 250 MG IVPB (20:38)
[2023-02-28] MEDS: guaiFENesin 12 HR 600 MG TABCR PO (20:43)
[2023-02-28 23:40] VITALS: BP 140/85; PULSE 86; RESP 15; TEMP 36.6; O2SAT 95
[2023-03-01] MEDS: ONDANSETRON INJ 4 MG/2 ML VIAL IV PUSH (02:34)
[2023-03-01] MEDS: SODIUM CHLORIDE 0.9% IV 1,000 ML 100 ML IV CONT (06:48)
[2023-03-01] MEDS: SUCRALFATE SUSP 100 MG/ML 10 ML UDC 1000 MG PO (06:48)
[2023-03-01 08:00] VITALS: BP 164/106; PULSE 84; RESP 18; TEMP 36.1; O2SAT 93
[2023-03-01] MEDS: METOCLOPRAMIDE HCL 5 MG TABLET PO (08:14)
[2023-03-01 08:30] VITALS: BP 150/84
[2023-03-01 08:31] LABS: Hematocrit 33.1 % (35.0-49.0); Hemoglobin 12.3 g/dL (12.0-15.0); Mean Corpuscular HGB Conc 37.2 g/dL (32.0-36.0); Mean Corpuscular Hemoglobin 32.4 pg (27.0-31.0); Mean Corpuscular Volume 87.1 fL (78.0-102.0); Mean Platelet Volume 8.8 fl (9.2-11.8); Platelet Count Result 499 K/mm3 (150-420); Red Cell Distribution Width 14.2 % (11.6-14.4); White Blood Count 11.2 K/mm3 (4.8-10.8)
[2023-03-01 08:47] LABS: Anion Gap 10 mmol/L (8-16); Blood Urea Nitrogen 7 mg/dL (7-18); Calcium 8.7 mg/dL (8.5-10.1); Carbon Dioxide 29 mmol/L (21-32); Chloride 99 mmol/L (98-108); Estimated CRCL calculation 96 ml/min; Estimated Glomerular Filt Rate > 60; Glucose 148 mg/dL (70-99); Osmolality Calculated 287 mOsm/kg (285-295); Potassium 2.6 mmol/L (3.5-5.1); Sodium 138 mmol/L (136-145)
[2023-03-01 08:55] LABS: Magnesium 1.8 mg/dL (1.8-2.4)
--- NOTE | 2023-03-01 09:03 | PM.DS ---
DS: Admitting Diagnosis Discharge Date 03/01/2023 Admitting Diagnosis hypokalemia, nausea DS: Summary Hospital Course Reason for hospitalization: hypokalemia, Hospital Course: Patient declines IV potassium and states she only willing to take any iv Time Spent with Patient Time attestation: Total time spent providing and/or coordinating discharge services: DS: Data Data Completed and Pending Labs on day of discharge: Labs from last 24 hours 03/01/23 03/01/23 02/28/23 08:48 08:25 12:47 WBC 11.2 H RBC 3.80 L Hgb 12.3 Hct 33.1 L MCV 87.1 MCH 32.4 H MCHC 37.2 H RDW 14.2 Plt Count 499 H MPV 8.8 L Sodium 138 Potassium 2.6 L 2.8 L Chloride 99 Carbon Dioxide 29 Anion Gap 10 BUN 7 Creatinine 0.74 Estim Creat Clear Calc 96 Estimated GFR > 60 Glucose 148 H Calculated Osmolality 287 Calcium 8.7 Magnesium 1.8 Discharge Plan Discharge Attending physician on discharge: Scotty Nichols Consulting providers: Denice Chavez; Kasi Zelaya Discharging Clinician: Denice Chavez Anticipated Discharge Date/Time: 03/01/23 08:36 Patient Disposition: Home, Self-Care Activity: may shower and follow weight bearing status Diet: as tolerated and heart healthy Discharge Instructions: Drink plenty of fluids Take all of your antibioitics Call and schedule with your primary care provider Patient Instructions: Antibiotic Form, Potassium Chloride (By mouth), Azithromycin (By mouth), Ondansetron (By mouth), Pharyngitis (ED), Acute Nausea and Vomiting (DC), Community Acquired Pneumonia (DC), Cannabis Use Disorder (DC), Pneumonia (DC) Stand Alone Forms: General Discharge Information Follow-up/Referrals: Yuliana,CARMELO Kidd [Primary Care Provider] - Follow Up with Primary Dr (Call and schedule appointment with PCP for post hospital ) Discharge Medications: New azithromycin [Zithromax Z-Doc] 250 mg tablet See Rx Instructions .ROUTE .COMPLEX Qty: 6 0RF Rx Instructions: For 250 mg dose pack: take 500 mg today (day 1), then 250 mg for 4 days (days 2-5) ondansetron 4 mg tablet,disintegrating 4 mg PO Q8H PRN (Reason: nausea and vomiting) Qty: 14 0RF albuterol sulfate 90 mcg/actuation HFA aerosol inhaler 2 puff inhalation QID PRN (Reason: shortness of breath or wheezing) Qty: 8.5 0RF potassium chloride 20 mEq tablet extended release 20 meq PO BID Qty: 30 0RF Other Ambulatory Orders: Basic Metabolic Panel (Routine) Timeframe: 3 Days Location: Determined by Patient Ordered By: Denice Chavez Complete Blood Count no Diff (Routine) Timeframe: 3 Days Location: Determined by Patient Ordered By: Denice Chavez Date of admission: 02/27/23 22:42 Primary Care Provider: YulianaBernabe Admitting Provider: Scotty Nichols Attending physician on admission: Scotty Nichols Condition: Stable
[2023-03-01] MEDS: POTASSIUM CHLORIDE 20 MEQ PACKET (FOR LIQUID) 40 MEQ PO (09:23)
[2023-03-01] MEDS: BENZONATATE 100 MG CAPSULE PO (09:24)
[2023-03-01] MEDS: POTASSIUM CHLORIDE 20 MEQ PACKET (FOR LIQUID) PO (09:30)
--- NOTE | 2023-03-01 10:50 | PC.NURSE ---
Discharge instructions reviewed with patient and her . All questions answered. Pt escorted via wheelchair and assisted into private vehicle.
--- NOTE | 2023-03-03 09:57 | PC.NURSE ---
Discharge call back attempted, no answer.
--- NOTE | 2023-03-04 09:08 | PC.NURSE ---
Discharge call back attempted, no answer
--- NOTE | 2023-03-05 08:53 | PC.NURSE ---
Unable to reach for DC call back
== END 2023-03-01 10:50 | disposition home or self-care (01) ==
LOC: CHSED 22:41 → CHS2ND 22:55
PROVIDERS: Nurse Practitioner Family; Admitting Provider Internal Medicine; Emergency Provider Emergency Medicine; PCP Physician Assistant; Visit Provider Internal Medicine
DX: J18.9 Pneumonia, unspecified organism (principal); E87.6 Hypokalemia; Z20.822 Contact with and (suspected) exposure to COVID-19; F12.10 Cannabis abuse, uncomplicated
CPT/HCPCS: 36415; 71045; 74177; 80048; 80053; 81025; 83605; 83690; 83735; 84132; 85025; 85027; 85055; 85610; 85730; 87040; 87637; 96361; 96365; 96366; 96367; 96374; 96375; 96376; 99285; A9270; C9113; G0378; G0379; J0456; J0696; J1885; J2270; J2405; J3480; J7030; Q9967